=== PATIENT | female | born 1960 | race Hispanic/Latino ===

== ENCOUNTER 2017-11-01 19:43 | Inpatient (IN) | payer BC ==
[~2017-11-01] VITALS: Ht 160 cm; Wt 74.2 kg
[~2017-11-01 19:43] MED LIST: ASPI-988 PO; DULO30CA51 PO; FOLI1CAP PO; LEVO100T4 PO; MAGN400T6 PO; METO25TA6 PO
[2017-11-01 20:18] LABS: APPEARANCE,URINE Clear (CLEAR); BILIRUBIN,URINE Negative (NEGATIVE); COLOR,URINE Yellow (YELLOW); GLUCOSE, URINE (UA) Negative (NEGATIVE); KETONES,URINE Negative (NEGATIVE); LEUKOCYTE ESTERASE ,URINE Negative (NEGATIVE); NITRATE,URINE Negative (NEGATIVE); OCCULT BLOOD,URINE Trace (NEGATIVE); PROTEIN,URINE Negative (NEGATIVE); UROBILINOGEN,URINE 0.2 mg/dL (0.2-1.0)
[2017-11-01 20:33] LABS: BACTERIA,URINE None Seen /HPF (None Seen); RBC,URINE 0-1 /HPF (0-1); SQUAMOUS EPITHELIAL CELL,UR 0-2 /LPF (0-2); WBC,URINE None Seen /HPF (0-1)
[2017-11-01 20:46] LABS: BASOPHILS % (AUTO) 0.9 % (0.0-5.0); EOSINOPHILS % (AUTO) 2.8 % (0.0-8.0); HEMATOCRIT 36.5 % (36-48); MEAN CORPUSCULAR HEMOGLOBIN 28.9 pg (27.0-33.0); MEAN CORPUSCULAR HGB CONC 33.6 g/dL (32.0-36.0); MEAN CORPUSCULAR VOLUME 86.1 fL (79-99); MONOCYTES % (AUTO) 12.9 % (3.0-13.0); NEUTROPHILS % (AUTO) 39.4 % (40.0-77.0); PLATELET COUNT (AUTO) 232 K/uL (130-400); RED BLOOD CELL COUNT(AUTO) 4.24 MIL/uL (4.00-5.50); WHITE BLOOD COUNT (AUTO) 7.2 K/uL (4.8-10.8)
[2017-11-01] MEDS ORDERED: SODIUM CHLORIDE 0.9% 1000ML 1,000 ML IV ONE ×2 (20:53→23:13)
[2017-11-01] MEDS ORDERED: ONDANSETRON HCL MDV 20ML 2 MG/ML VIAL ONE (20:53)
[2017-11-01] MEDS ORDERED: MORPHINE SULFATE 4 MG/1ML SYG ONE (20:54)
[2017-11-01 20:57] LABS: POTASSIUM 3.6 mmol/L (3.5-5.1)
[2017-11-01 21:01] LABS: ALBUMIN 3.5 g/dL (3.5-5.0); BILIRUBIN,TOTAL 0.3 mg/dL (0.2-1.0); TOTAL PROTEIN, SERUM 7.4 g/dL (6.0-8.3)
[2017-11-01] MEDS ORDERED: KETOROLAC TROMETHAMINE 30MG/ML ONE (22:36)
[2017-11-01] MEDS ORDERED: METRONIDAZOLE 500MG/100ML BAG 100 ML ONE (23:12)
[2017-11-01] MEDS ORDERED: ONDANSETRON HCL 4 MG/2 ML VIAL IVP PRN (23:30)
[2017-11-01] MEDS: SODIUM CHLORIDE 0.9% 1000ML 1,000 ML IV SCH (23:30)
[2017-11-02] MEDS ORDERED: METRONIDAZOLE 250MG/50ML 50 ML IV SCH
[2017-11-02] MEDS ORDERED: ONDANSETRON HCL MDV 20ML 2 MG/ML VIAL ONE ×4 (01:34→18:36)
[2017-11-02] MEDS ORDERED: MORPHINE SULFATE 4 MG/1ML SYG ONE ×3 (01:35→12:00)
[2017-11-02] MEDS ORDERED: METRONIDAZOLE 500MG/100ML BAG 100 ML ONE (04:55)
[2017-11-02 05:04] LABS: BASOPHILS % (AUTO) 0.7 % (0.0-5.0); EOSINOPHILS % (AUTO) 4.7 % (0.0-8.0); HEMATOCRIT 32.5 % (36-48); LYMPHOCYTES % (AUTO) 50.4 % (21.0-51.0); MEAN CORPUSCULAR HEMOGLOBIN 30.3 pg (27.0-33.0); MEAN CORPUSCULAR HGB CONC 34.5 g/dL (32.0-36.0); MEAN CORPUSCULAR VOLUME 87.8 fL (79-99); NEUTROPHILS % (AUTO) 32.2 % (40.0-77.0); NUCLEATED RED BLOOD CELLS 0.1 % (0.0-0.19); PLATELET COUNT (AUTO) 199 K/uL (130-400); RED CELL DISTRIBUTION WIDTH 13.3 % (11.0-15.5); WHITE BLOOD COUNT (AUTO) 5.3 K/uL (4.8-10.8)
[2017-11-02 05:09] LABS: CREATININE 0.8 mg/dL (0.5-1.5); POTASSIUM 3.8 mmol/L (3.5-5.1)
[2017-11-02] MEDS ORDERED: COMPOUND PO MISCELLANEOUS 1 EACH MISC MISC PRN (07:00)
[2017-11-02] MEDS: SODIUM CHLORIDE 0.9% 1000ML 1,000 ML IV SCH ×3 (07:30→22:36)
[2017-11-02] MEDS ORDERED: VANCOMYCIN 250MG/5ML ORAL SOLUTION 40ML PO SCH ×2 (08:00)
[2017-11-02] MEDS: LOPERAMIDE HCL 2 MG CAP PO SCH ×2 (09:30→21:00)
[2017-11-02] MEDS: METRONIDAZOLE 250MG/50ML 50 ML IV SCH ×4 (10:00→22:36)
[2017-11-02] MEDS ORDERED: LOPERAMIDE HCL 2 MG CAP PO ONE (10:22)
[2017-11-02] MEDS: CHOLESTYRAMINE PACKET 4 GM PACKET PO SCH (12:00)
[2017-11-02] MEDS ORDERED: KETOROLAC TROMETHAMINE 30MG/ML ONE (19:33)
[2017-11-02 19:55] VITALS: BP 132/88
[2017-11-02] MEDS: VANCOMYCIN 250MG/5ML ORAL SOLUTION 40ML PO SCH ×2 (20:35)
[2017-11-02] MEDS: MORPHINE SULFATE 4 MG/1ML SYG IVP PRN (22:30)
[2017-11-03] VITALS: BP 100/58
[2017-11-03] MEDS ORDERED: ONDANSETRON HCL MDV 20ML 2 MG/ML VIAL IVP ONE ×2 (03:35→12:03)
[2017-11-03] MEDS: ONDANSETRON HCL MDV 20ML 2 MG/ML VIAL IVP PRN ×2 (03:40→12:11)
[2017-11-03] MEDS: MORPHINE SULFATE 4 MG/1ML SYG IVP PRN ×3 (03:40→20:39)
[2017-11-03] MEDS: METRONIDAZOLE 250MG/50ML 50 ML IV SCH ×4 (03:44→22:17)
[2017-11-03 04:00] VITALS: BP 104/62
[2017-11-03 04:39] LABS: HEMATOCRIT 35.3 % (36-48); MEAN CORPUSCULAR HGB CONC 33.6 g/dL (32.0-36.0); MEAN CORPUSCULAR VOLUME 86.4 fL (79-99); PLATELET COUNT (AUTO) 224 K/uL (130-400); RED BLOOD CELL COUNT(AUTO) 4.09 MIL/uL (4.00-5.50); RED CELL DISTRIBUTION WIDTH 12.9 % (11.0-15.5)
[2017-11-03 04:50] LABS: CREATININE 0.8 mg/dL (0.5-1.5); POTASSIUM 3.7 mmol/L (3.5-5.1)
[2017-11-03 04:56] LABS: BAND NEUTROPHILS % (MANUAL) 9 % (0-2); BASOPHILS % (MANUAL) 3 % (0-2); EOSINOPHILS % (MANUAL) 4 % (1-6); LYMPHOCYTES % (MANUAL) 21 % (22-44); MAN.DIFF COMMENT-IMPRESSION MANUAL DIFFERENTIAL; MONOCYTES % (MANUAL) 4 % (2-9); PLATELET MORPHOLOGY COMMENT ADEQUATE; SEGMENTED NEUTROPHILS % 59 % (40-70)
[2017-11-03 07:00] VITALS: BP 119/75
[2017-11-03 08:00] LABS: INR 0.97 (0.85-1.15); PARTIAL THROMBOPLASTIN TIME 23.3 SEC (26.3-35.5); PROTHROMBIN TIME 10.2 SEC (9.6-11.6)
[2017-11-03] MEDS: LOPERAMIDE HCL 2 MG CAP PO SCH ×2 (08:54→20:33)
[2017-11-03] MEDS: VANCOMYCIN 250MG/5ML ORAL SOLUTION 40ML PO SCH ×8 (08:55→20:34)
[2017-11-03 11:00] VITALS: BP 141/91
[2017-11-03] MEDS: CHOLESTYRAMINE PACKET 4 GM PACKET PO SCH (12:12)
[2017-11-03] MEDS: SODIUM CHLORIDE 0.9% 1000ML 1,000 ML IV SCH ×3 (15:30→23:30)
[2017-11-03 15:57] VITALS: BP 137/93
[2017-11-03] MEDS ORDERED: PEG 3350/NA SULF,BICARB,CL/KCL 4000 ML SOLN PO SCH (16:00)
[2017-11-03] MEDS ORDERED: ALPRAZOLAM 0.5 MG TABLET PO PRN (17:45)
[2017-11-03 19:50] VITALS: BP 138/90
[2017-11-03] MEDS ORDERED: MAGNESIUM CITRATE 296 ML SOLUTION PO SCH (20:00)
[2017-11-03] MEDS: METOPROLOL TARTRATE 25 MG TAB PO SCH (20:33)
[2017-11-04] VITALS (23 sets, daily range): BP systolic 82–152; BP diastolic 45–88
[2017-11-04] MEDS ORDERED: MAGNESIUM CITRATE 296 ML SOLUTION PO SCH (04:00)
[2017-11-04] MEDS: METRONIDAZOLE 250MG/50ML 50 ML IV SCH ×4 (04:29→20:59)
[2017-11-04] MEDS: LEVOTHYROXINE 100 MCG TABLET PO SCH (04:30)
[2017-11-04] MEDS: SODIUM CHLORIDE 0.9% 1000ML 1,000 ML IV SCH ×3 (04:30→21:00)
[2017-11-04] MEDS: ONDANSETRON HCL MDV 20ML 2 MG/ML VIAL IVP PRN (06:02)
[2017-11-04] MEDS: MORPHINE SULFATE 4 MG/1ML SYG IVP PRN ×3 (06:02→21:21)
[2017-11-04] MEDS: LOPERAMIDE HCL 2 MG CAP PO SCH ×2 (08:19→20:59)
[2017-11-04] MEDS ORDERED: ASPIRIN PO SCH (09:00)
[2017-11-04] MEDS ORDERED: CAFFEINE PO SCH (09:00)
[2017-11-04] MEDS ORDERED: ACETAMINOPHEN PO SCH (09:00)
[2017-11-04] MEDS: METOPROLOL TARTRATE 25 MG TAB PO SCH ×2 (09:00→20:59)
[2017-11-04] MEDS: VANCOMYCIN 250MG/5ML ORAL SOLUTION 40ML PO SCH ×8 (09:00→20:58)
[2017-11-04] MEDS ORDERED: PROPOFOL 10 MG/ML 20ML VIAL IV ONE ×2 (10:04)
[2017-11-04] MEDS ORDERED: COMPOUND IV MISC 1 EACH IVSOLN MISC PRN (12:00)
[2017-11-04] MEDS: CHOLESTYRAMINE PACKET 4 GM PACKET PO SCH (15:11)
[2017-11-04] MEDS: KETOROLAC TROMETHAMINE 30MG/ML IV PRN (16:54)
[2017-11-05 03:00] VITALS: BP 108/71
[2017-11-05] MEDS: METRONIDAZOLE 250MG/50ML 50 ML IV SCH ×4 (04:13→22:01)
[2017-11-05] MEDS: SODIUM CHLORIDE 0.9% 1000ML 1,000 ML IV SCH ×3 (04:14→16:56)
[2017-11-05 04:54] LABS: ALBUMIN 2.5 g/dL (3.5-5.0); BILIRUBIN,TOTAL 0.3 mg/dL (0.2-1.0); CREATININE 0.7 mg/dL (0.5-1.5); POTASSIUM 3.2 mmol/L (3.5-5.1); TOTAL PROTEIN, SERUM 5.5 g/dL (6.0-8.3)
[2017-11-05] MEDS: MORPHINE SULFATE 4 MG/1ML SYG IVP PRN ×3 (05:23→16:51)
[2017-11-05] MEDS: LEVOTHYROXINE 100 MCG TABLET PO SCH (05:23)
[2017-11-05] MEDS ORDERED: POTASSIUM CHLORIDE 10% ELIXIR 20 MEQ/15 ML UDCUP PO PRN (06:45)
[2017-11-05] MEDS ORDERED: POTASSIUM CHLORIDE 20MEQ/100ML 100 ML IV PRN (06:45)
[2017-11-05] MEDS ORDERED: LIDOCAINE HCL-MPF 1% 2ML VIAL IVP PRN (06:45)
[2017-11-05 08:00] VITALS: BP 110/69
[2017-11-05 11:50] VITALS: BP 136/71
[2017-11-05] MEDS: METOPROLOL TARTRATE 25 MG TAB PO SCH ×2 (11:59→22:00)
[2017-11-05] MEDS: POTASSIUM CHLORIDE 20 MEQ ERTAB PO PRN ×3 (11:59→22:00)
[2017-11-05] MEDS: CHOLESTYRAMINE PACKET 4 GM PACKET PO SCH (12:00)
[2017-11-05] MEDS: LOPERAMIDE HCL 2 MG CAP PO SCH ×2 (12:00→21:59)
[2017-11-05] MEDS: VANCOMYCIN 250MG/5ML ORAL SOLUTION 40ML PO SCH ×8 (12:01→22:00)
[2017-11-05 16:19] VITALS: BP 113/73
[2017-11-05 19:10] VITALS: BP 132/78
[2017-11-05 23:27] VITALS: BP 110/64
[2017-11-06] MEDS: MORPHINE SULFATE 4 MG/1ML SYG IVP PRN ×3 (02:01→22:50)
[2017-11-06] MEDS: SODIUM CHLORIDE 0.9% 1000ML 1,000 ML IV SCH ×3 (02:01→22:49)
[2017-11-06 03:27] VITALS: BP 107/69
[2017-11-06] MEDS: METRONIDAZOLE 250MG/50ML 50 ML IV SCH ×4 (04:04→22:40)
[2017-11-06 05:59] LABS: HEMATOCRIT 31.8 % (36-48); MEAN CORPUSCULAR HEMOGLOBIN 29.9 pg (27.0-33.0); MEAN CORPUSCULAR HGB CONC 34.6 g/dL (32.0-36.0); MEAN CORPUSCULAR VOLUME 86.5 fL (79-99); NUCLEATED RED BLOOD CELLS 0.1 % (0.0-0.19); PLATELET COUNT (AUTO) 173 K/uL (130-400); RED BLOOD CELL COUNT(AUTO) 3.68 MIL/uL (4.00-5.50); RED CELL DISTRIBUTION WIDTH 12.9 % (11.0-15.5); WHITE BLOOD COUNT (AUTO) 4.8 K/uL (4.8-10.8)
[2017-11-06 06:28] LABS: ALBUMIN 2.6 g/dL (3.5-5.0); BILIRUBIN,TOTAL 0.2 mg/dL (0.2-1.0); CREATININE 0.7 mg/dL (0.5-1.5); POTASSIUM 3.8 mmol/L (3.5-5.1); TOTAL PROTEIN, SERUM 5.7 g/dL (6.0-8.3)
[2017-11-06 07:00] VITALS: BP_SYST 115; BP_SYST 126; BP_DIAS 59; BP_DIAS 78
[2017-11-06 07:08] LABS: ERYTHROCYTE SEDIMENTATION RATE 6 MM/HR (0-15)
[2017-11-06] MEDS: LEVOTHYROXINE 100 MCG TABLET PO SCH (07:30)
[2017-11-06] MEDS: METOPROLOL TARTRATE 25 MG TAB PO SCH ×2 (09:00→22:40)
[2017-11-06] MEDS: VANCOMYCIN 250MG/5ML ORAL SOLUTION 40ML PO SCH ×8 (09:00→21:00)
[2017-11-06] MEDS: LOPERAMIDE HCL 2 MG CAP PO SCH ×2 (09:00→22:40)
[2017-11-06 11:00] VITALS: BP_SYST 108; BP_SYST 126; BP_DIAS 43; BP_DIAS 74
[2017-11-06] MEDS: KETOROLAC TROMETHAMINE 30MG/ML IV PRN (11:16)
[2017-11-06] MEDS: CHOLESTYRAMINE PACKET 4 GM PACKET PO SCH (12:00)
[2017-11-06 16:00] VITALS: BP 124/75
[2017-11-06 20:00] VITALS: BP 125/84
[2017-11-07] VITALS: BP 114/74
[2017-11-07 04:00] VITALS: BP 111/69
[2017-11-07] MEDS: METRONIDAZOLE 250MG/50ML 50 ML IV SCH ×2 (04:15→08:45)
[2017-11-07] MEDS: SODIUM CHLORIDE 0.9% 1000ML 1,000 ML IV SCH ×3 (06:13→23:38)
[2017-11-07] MEDS: LEVOTHYROXINE 100 MCG TABLET PO SCH (06:40)
[2017-11-07 08:13] VITALS: BP 137/80
[2017-11-07] MEDS: METOPROLOL TARTRATE 25 MG TAB PO SCH ×2 (08:44→21:40)
[2017-11-07] MEDS: LOPERAMIDE HCL 2 MG CAP PO SCH ×2 (08:44→21:40)
[2017-11-07] MEDS: VANCOMYCIN 250MG/5ML ORAL SOLUTION 40ML PO SCH ×8 (08:45→21:42)
[2017-11-07] MEDS ORDERED: METRONIDAZOLE 500 MG TABLET PO SCH (10:45)
[2017-11-07] MEDS: MORPHINE SULFATE 4 MG/1ML SYG IVP PRN ×3 (11:51→23:37)
[2017-11-07] MEDS: ONDANSETRON HCL MDV 20ML 2 MG/ML VIAL IVP PRN (11:52)
[2017-11-07 12:00] VITALS: BP 130/88
[2017-11-07] MEDS: CHOLESTYRAMINE PACKET 4 GM PACKET PO SCH (12:56)
[2017-11-07] MEDS: METRONIDAZOLE 500MG/100ML BAG 100 ML IV SCH ×2 (12:56→21:40)
[2017-11-07 16:00] VITALS: BP 137/86
[2017-11-08] VITALS (7 sets, daily range): BP systolic 94–166; BP diastolic 70–79
[2017-11-08] MEDS: LEVOTHYROXINE 100 MCG TABLET PO SCH (05:54)
[2017-11-08] MEDS: METRONIDAZOLE 500MG/100ML BAG 100 ML IV SCH ×3 (05:54→21:00)
[2017-11-08 06:24] LABS: BASOPHILS % (AUTO) 0.5 % (0.0-5.0); EOSINOPHILS % (AUTO) 4.4 % (0.0-8.0); HEMATOCRIT 32.4 % (36-48); LYMPHOCYTES % (AUTO) 38.5 % (21.0-51.0); MEAN CORPUSCULAR HEMOGLOBIN 29.8 pg (27.0-33.0); MEAN CORPUSCULAR HGB CONC 34.5 g/dL (32.0-36.0); MEAN CORPUSCULAR VOLUME 86.4 fL (79-99); MONOCYTES % (AUTO) 13.9 % (3.0-13.0); NEUTROPHILS % (AUTO) 42.7 % (40.0-77.0); PLATELET COUNT (AUTO) 190 K/uL (130-400); RED BLOOD CELL COUNT(AUTO) 3.75 MIL/uL (4.00-5.50); RED CELL DISTRIBUTION WIDTH 13.1 % (11.0-15.5); WHITE BLOOD COUNT (AUTO) 5.1 K/uL (4.8-10.8)
[2017-11-08 06:38] LABS: ALBUMIN 2.6 g/dL (3.5-5.0); BILIRUBIN,TOTAL 0.3 mg/dL (0.2-1.0); CREATININE 0.7 mg/dL (0.5-1.5); POTASSIUM 3.4 mmol/L (3.5-5.1); TOTAL PROTEIN, SERUM 5.6 g/dL (6.0-8.3)
[2017-11-08] MEDS: SODIUM CHLORIDE 0.9% 1000ML 1,000 ML IV SCH ×3 (07:30→21:00)
[2017-11-08] MEDS: LOPERAMIDE HCL 2 MG CAP PO SCH ×2 (09:00→20:58)
[2017-11-08] MEDS: METOPROLOL TARTRATE 25 MG TAB PO SCH ×2 (09:52→20:58)
[2017-11-08] MEDS: HYDROCORTISONE 25 MG SUPPOSITORY PR SCH (09:52)
[2017-11-08] MEDS: VANCOMYCIN 250MG/5ML ORAL SOLUTION 40ML PO SCH ×8 (09:53→20:59)
[2017-11-08] MEDS: POTASSIUM CHLORIDE 20 MEQ ERTAB PO PRN ×2 (09:53→11:34)
[2017-11-08] MEDS: MORPHINE SULFATE 4 MG/1ML SYG IVP PRN ×3 (09:56→18:21)
[2017-11-08] MEDS: ONDANSETRON HCL MDV 20ML 2 MG/ML VIAL IVP PRN (14:03)
[2017-11-08] MEDS: CHOLESTYRAMINE PACKET 4 GM PACKET PO SCH (14:08)
[2017-11-09 04:00] VITALS: BP 113/73
[2017-11-09] MEDS: METRONIDAZOLE 500MG/100ML BAG 100 ML IV SCH ×3 (05:44→21:45)
[2017-11-09] MEDS: ONDANSETRON HCL MDV 20ML 2 MG/ML VIAL IVP PRN (05:45)
[2017-11-09] MEDS: SODIUM CHLORIDE 0.9% 1000ML 1,000 ML IV SCH ×3 (05:52→22:55)
[2017-11-09 06:46] LABS: HEMATOCRIT 36.5 % (36-48); MEAN CORPUSCULAR HEMOGLOBIN 28.9 pg (27.0-33.0); MEAN CORPUSCULAR HGB CONC 33.5 g/dL (32.0-36.0); MEAN CORPUSCULAR VOLUME 86.2 fL (79-99); PLATELET COUNT (AUTO) 205 K/uL (130-400); RED BLOOD CELL COUNT(AUTO) 4.23 MIL/uL (4.00-5.50); RED CELL DISTRIBUTION WIDTH 13.2 % (11.0-15.5); WHITE BLOOD COUNT (AUTO) 5.4 K/uL (4.8-10.8)
[2017-11-09 06:53] LABS: CREATININE 0.7 mg/dL (0.5-1.5); POTASSIUM 3.8 mmol/L (3.5-5.1)
[2017-11-09 08:10] VITALS: BP 117/76
[2017-11-09] MEDS: LEVOTHYROXINE 100 MCG TABLET PO SCH (08:49)
[2017-11-09] MEDS: DICYCLOMINE HCL 20 MG TAB PO PRN ×3 (08:49→18:01)
[2017-11-09] MEDS: HYDROCORTISONE 25 MG SUPPOSITORY PR SCH (08:49)
[2017-11-09] MEDS: METOPROLOL TARTRATE 25 MG TAB PO SCH ×2 (08:49→20:28)
[2017-11-09] MEDS: PANTOPRAZOLE SODIUM 40 MG TABLET.DR PO SCH (08:49)
[2017-11-09] MEDS: LOPERAMIDE HCL 2 MG CAP PO SCH ×2 (08:50→20:28)
[2017-11-09] MEDS: VANCOMYCIN 250MG/5ML ORAL SOLUTION 40ML PO SCH ×8 (08:51→20:27)
[2017-11-09] MEDS: CHOLESTYRAMINE PACKET 4 GM PACKET PO SCH (11:56)
[2017-11-09 12:02] VITALS: BP 114/75
[2017-11-09] MEDS ORDERED: DICYCLOMINE HCL 20 MG TAB PO PRN (15:30)
[2017-11-09 16:00] VITALS: BP 121/73
[2017-11-09] MEDS: HYDROMORPHONE HCL 0.5 MG/0.5 ML ML IVP PRN (18:04)
[2017-11-09 20:00] VITALS: BP 125/75
[2017-11-10] VITALS: BP 118/68
[2017-11-10] MEDS: HYDROMORPHONE HCL 0.5 MG/0.5 ML ML IVP PRN ×2 (00:18→22:02)
[2017-11-10 04:00] VITALS: BP 98/65
[2017-11-10] MEDS: METRONIDAZOLE 500MG/100ML BAG 100 ML IV SCH (05:12)
[2017-11-10] MEDS: LEVOTHYROXINE 100 MCG TABLET PO SCH (06:12)
[2017-11-10 07:47] VITALS: BP 128/75
[2017-11-10] MEDS: LOPERAMIDE HCL 2 MG CAP PO SCH ×2 (09:00→21:52)
[2017-11-10] MEDS: PANTOPRAZOLE SODIUM 40 MG TABLET.DR PO SCH (10:41)
[2017-11-10] MEDS: SUCRALFATE 1 GM TABLET PO SCH ×2 (10:41→21:53)
[2017-11-10] MEDS: DICYCLOMINE HCL 20 MG TAB PO PRN (10:41)
[2017-11-10] MEDS: HYDROCORTISONE 25 MG SUPPOSITORY PR SCH (10:42)
[2017-11-10] MEDS: METOPROLOL TARTRATE 25 MG TAB PO SCH ×2 (10:42→21:52)
[2017-11-10] MEDS: VANCOMYCIN 250MG/5ML ORAL SOLUTION 40ML PO SCH ×8 (10:45→21:58)
[2017-11-10] MEDS: SODIUM CHLORIDE 0.9% 1000ML 1,000 ML IV SCH (10:46)
[2017-11-10 12:00] VITALS: BP 115/83
[2017-11-10] MEDS: CHOLESTYRAMINE PACKET 4 GM PACKET PO SCH (12:00)
[2017-11-10 16:59] VITALS: BP 128/78
[2017-11-10 20:00] VITALS: BP 125/77
[2017-11-11] VITALS: BP 113/70
[2017-11-11] MEDS: SODIUM CHLORIDE 0.9% 1000ML 1,000 ML IV SCH ×2 (02:29→17:34)
[2017-11-11 03:59] VITALS: BP 130/69
[2017-11-11] MEDS ORDERED: METHYLPREDNISOLONE SOD SUCC 125MG/2ML VIAL IVP SCH (06:45)
[2017-11-11] MEDS: LEVOTHYROXINE 100 MCG TABLET PO SCH (06:46)
[2017-11-11] MEDS: SUCRALFATE 1 GM TABLET PO SCH ×3 (06:46→17:34)
[2017-11-11 07:00] VITALS: BP 115/79
[2017-11-11 08:24] LABS: HEMATOCRIT 36.1 % (36-48); MEAN CORPUSCULAR HEMOGLOBIN 29.2 pg (27.0-33.0); MEAN CORPUSCULAR VOLUME 85.9 fL (79-99); PLATELET COUNT (AUTO) 199 K/uL (130-400); RED CELL DISTRIBUTION WIDTH 13.3 % (11.0-15.5); WHITE BLOOD COUNT (AUTO) 6.3 K/uL (4.8-10.8)
[2017-11-11 08:35] LABS: CREATININE 0.7 mg/dL (0.5-1.5); POTASSIUM 3.3 mmol/L (3.5-5.1); URIC ACID 4.4 mg/dL (2.6-7.2)
[2017-11-11] MEDS: LOPERAMIDE HCL 2 MG CAP PO SCH ×2 (09:00→20:53)
[2017-11-11] MEDS: HYDROCORTISONE 25 MG SUPPOSITORY PR SCH (09:00)
[2017-11-11] MEDS: METOPROLOL TARTRATE 25 MG TAB PO SCH ×2 (09:53→20:51)
[2017-11-11] MEDS: VANCOMYCIN 250MG/5ML ORAL SOLUTION 40ML PO SCH ×8 (09:53→20:53)
[2017-11-11] MEDS: PANTOPRAZOLE SODIUM 40 MG TABLET.DR PO SCH (09:53)
[2017-11-11 11:00] VITALS: BP 121/76
[2017-11-11] MEDS: CHOLESTYRAMINE PACKET 4 GM PACKET PO SCH (12:00)
[2017-11-11 16:00] VITALS: BP 117/71
[2017-11-11 20:00] VITALS: BP 148/97
[2017-11-11] MEDS ORDERED: HYDROMORPHONE 1 MG/1 ML AMP ONE (21:00)
[2017-11-12] VITALS (7 sets, daily range): BP systolic 117–146; BP diastolic 67–98
[2017-11-12] MEDS: SODIUM CHLORIDE 0.9% 1000ML 1,000 ML IV SCH ×3 (06:07→17:39)
[2017-11-12] MEDS: LEVOTHYROXINE 100 MCG TABLET PO SCH (06:09)
[2017-11-12] MEDS: SUCRALFATE 1 GM TABLET PO SCH ×3 (06:09→17:39)
[2017-11-12] MEDS ORDERED: METHYLPREDNISOLONE SOD SUCC 125MG/2ML VIAL IVP SCH (07:00)
[2017-11-12] MEDS: VANCOMYCIN 250MG/5ML ORAL SOLUTION 40ML PO SCH ×8 (09:00→20:39)
[2017-11-12] MEDS: HYDROCORTISONE 25 MG SUPPOSITORY PR SCH (09:08)
[2017-11-12] MEDS: LOPERAMIDE HCL 2 MG CAP PO SCH ×2 (09:08→20:44)
[2017-11-12] MEDS: PANTOPRAZOLE SODIUM 40 MG TABLET.DR PO SCH (09:08)
[2017-11-12] MEDS: METOPROLOL TARTRATE 25 MG TAB PO SCH ×2 (09:08→21:46)
[2017-11-12 10:26] LABS: HEMATOCRIT 34.4 % (36-48); MEAN CORPUSCULAR HGB CONC 34.7 g/dL (32.0-36.0); MEAN CORPUSCULAR VOLUME 86.3 fL (79-99); PLATELET COUNT (AUTO) 212 K/uL (130-400); RED BLOOD CELL COUNT(AUTO) 3.99 MIL/uL (4.00-5.50); RED CELL DISTRIBUTION WIDTH 13.4 % (11.0-15.5); WHITE BLOOD COUNT (AUTO) 10.9 K/uL (4.8-10.8)
[2017-11-12 10:42] LABS: ALBUMIN 3.1 g/dL (3.5-5.0); BILIRUBIN,TOTAL 0.3 mg/dL (0.2-1.0); CREATININE 0.7 mg/dL (0.5-1.5); POTASSIUM 3.4 mmol/L (3.5-5.1); TOTAL PROTEIN, SERUM 6.7 g/dL (6.0-8.3)
[2017-11-12] MEDS: CHOLESTYRAMINE PACKET 4 GM PACKET PO SCH (13:17)
[2017-11-13] VITALS (18 sets, daily range): BP systolic 90–144; BP diastolic 66–92
[2017-11-13] MEDS: SODIUM CHLORIDE 0.9% 1000ML 1,000 ML IV SCH ×4 (04:34→20:45)
[2017-11-13 04:56] LABS: HEMATOCRIT 33.8 % (36-48); MEAN CORPUSCULAR HGB CONC 33.6 g/dL (32.0-36.0); MEAN CORPUSCULAR VOLUME 86.2 fL (79-99); NUCLEATED RED BLOOD CELLS 0.1 % (0.0-0.19); PLATELET COUNT (AUTO) 197 K/uL (130-400); RED BLOOD CELL COUNT(AUTO) 3.92 MIL/uL (4.00-5.50); RED CELL DISTRIBUTION WIDTH 13.7 % (11.0-15.5); WHITE BLOOD COUNT (AUTO) 10.6 K/uL (4.8-10.8)
[2017-11-13 05:27] LABS: ALBUMIN 2.9 g/dL (3.5-5.0); BILIRUBIN,TOTAL 0.3 mg/dL (0.2-1.0); CREATININE 0.7 mg/dL (0.5-1.5); POTASSIUM 3.4 mmol/L (3.5-5.1); TOTAL PROTEIN, SERUM 6.4 g/dL (6.0-8.3)
[2017-11-13] MEDS: LEVOTHYROXINE 100 MCG TABLET PO SCH (07:30)
[2017-11-13] MEDS: LOPERAMIDE HCL 2 MG CAP PO SCH ×2 (09:00→20:44)
[2017-11-13] MEDS: SUCRALFATE 1 GM TABLET PO SCH ×3 (11:30→17:40)
[2017-11-13] MEDS: METOPROLOL TARTRATE 25 MG TAB PO SCH ×2 (12:09→20:44)
[2017-11-13] MEDS: PANTOPRAZOLE SODIUM 40 MG TABLET.DR PO SCH (12:09)
[2017-11-13] MEDS: HYDROCORTISONE 25 MG SUPPOSITORY PR SCH (12:10)
[2017-11-13] MEDS: CHOLESTYRAMINE PACKET 4 GM PACKET PO SCH (12:11)
[2017-11-13] MEDS: ONDANSETRON HCL MDV 20ML 2 MG/ML VIAL IVP PRN (17:41)
[2017-11-14 04:35] VITALS: BP 109/68
[2017-11-14] MEDS: SUCRALFATE 1 GM TABLET PO SCH ×2 (06:14→18:46)
[2017-11-14] MEDS: LEVOTHYROXINE 100 MCG TABLET PO SCH (06:14)
[2017-11-14] MEDS: POTASSIUM CHLORIDE 20 MEQ ERTAB PO PRN (06:14)
[2017-11-14] MEDS: SODIUM CHLORIDE 0.9% 1000ML 1,000 ML IV SCH ×3 (06:15→23:30)
[2017-11-14 08:21] VITALS: BP 140/79
[2017-11-14] MEDS: LOPERAMIDE HCL 2 MG CAP PO SCH ×2 (10:33→20:35)
[2017-11-14] MEDS: HYDROCORTISONE 25 MG SUPPOSITORY PR SCH (10:33)
[2017-11-14] MEDS: METOPROLOL TARTRATE 25 MG TAB PO SCH ×2 (10:33→20:35)
[2017-11-14] MEDS: PANTOPRAZOLE SODIUM 40 MG TABLET.DR PO SCH (10:33)
[2017-11-14 11:34] LABS: ALBUMIN 3.1 g/dL (3.5-5.0); BILIRUBIN,TOTAL 0.3 mg/dL (0.2-1.0); CREATININE 0.8 mg/dL (0.5-1.5); MAGNESIUM 1.8 mg/dL (1.80-2.40); POTASSIUM 3.2 mmol/L (3.5-5.1); TOTAL PROTEIN, SERUM 6.9 g/dL (6.0-8.3)
[2017-11-14 11:47] LABS: BASOPHILS % (AUTO) 0.4 % (0.0-5.0); EOSINOPHILS % (AUTO) 1.6 % (0.0-8.0); HEMATOCRIT 36.4 % (36-48); LYMPHOCYTES % (AUTO) 31.9 % (21.0-51.0); MEAN CORPUSCULAR HEMOGLOBIN 29.7 pg (27.0-33.0); MEAN CORPUSCULAR HGB CONC 34.3 g/dL (32.0-36.0); MEAN CORPUSCULAR VOLUME 86.4 fL (79-99); MONOCYTES % (AUTO) 13.4 % (3.0-13.0); NEUTROPHILS % (AUTO) 52.7 % (40.0-77.0); NUCLEATED RED BLOOD CELLS 0.1 % (0.0-0.19); PLATELET COUNT (AUTO) 191 K/uL (130-400); RED BLOOD CELL COUNT(AUTO) 4.21 MIL/uL (4.00-5.50); RED CELL DISTRIBUTION WIDTH 13.5 % (11.0-15.5); WHITE BLOOD COUNT (AUTO) 6.6 K/uL (4.8-10.8)
[2017-11-14 11:57] VITALS: BP 132/46
[2017-11-14] MEDS: CHOLESTYRAMINE PACKET 4 GM PACKET PO SCH (12:00)
[2017-11-14] MEDS ORDERED: COMPOUND IV REFRIGERATED 1 EACH IVSOLN MISC PRN (13:00)
[2017-11-14] MEDS ORDERED: VANCOMYCIN PROTOCOL PER PHARMACY IV SCH (13:00)
[2017-11-14] MEDS ORDERED: MAGNESIUM 4GM PREMIX 100ML 100 ML IV SCH (14:00)
[2017-11-14 15:50] VITALS: BP 123/84
[2017-11-14] MEDS: VANCOMYCIN 1.25 GM in SODIUM CHLORIDE 0.9% 250 ML IV SCH (18:47)
[2017-11-14 19:47] VITALS: BP 121/81
[2017-11-15] VITALS (7 sets, daily range): BP systolic 104–131; BP diastolic 66–84
[2017-11-15] MEDS: VANCOMYCIN 1.25 GM in SODIUM CHLORIDE 0.9% 250 ML IV SCH ×2 (05:08→12:41)
[2017-11-15] MEDS: POTASSIUM CHLORIDE 20 MEQ ERTAB PO PRN ×2 (05:09→06:25)
[2017-11-15] MEDS: LEVOTHYROXINE 100 MCG TABLET PO SCH (06:24)
[2017-11-15] MEDS: SUCRALFATE 1 GM TABLET PO SCH ×3 (06:24→17:13)
[2017-11-15] MEDS: SODIUM CHLORIDE 0.9% 1000ML 1,000 ML IV SCH ×3 (06:51→20:52)
[2017-11-15] MEDS: PANTOPRAZOLE SODIUM 40 MG TABLET.DR PO SCH (09:59)
[2017-11-15] MEDS: METOPROLOL TARTRATE 25 MG TAB PO SCH ×2 (10:00→20:52)
[2017-11-15] MEDS: HYDROCORTISONE 25 MG SUPPOSITORY PR SCH (10:00)
[2017-11-15] MEDS: LOPERAMIDE HCL 2 MG CAP PO SCH ×2 (10:00→20:51)
[2017-11-15] MEDS: CHOLESTYRAMINE PACKET 4 GM PACKET PO SCH (12:40)
[2017-11-16] MEDS: VANCOMYCIN 1.25 GM in SODIUM CHLORIDE 0.9% 250 ML IV SCH ×2 (01:06→13:00)
[2017-11-16 04:40] VITALS: BP 127/83
[2017-11-16] MEDS: SUCRALFATE 1 GM TABLET PO SCH ×2 (06:12→11:53)
[2017-11-16] MEDS: LEVOTHYROXINE 100 MCG TABLET PO SCH (06:12)
[2017-11-16 06:17] LABS: BASOPHILS % (AUTO) 0.4 % (0.0-5.0); EOSINOPHILS % (AUTO) 4.2 % (0.0-8.0); LYMPHOCYTES % (AUTO) 39.1 % (21.0-51.0); MEAN CORPUSCULAR HEMOGLOBIN 29.3 pg (27.0-33.0); MEAN CORPUSCULAR HGB CONC 34.4 g/dL (32.0-36.0); MEAN CORPUSCULAR VOLUME 85.4 fL (79-99); MONOCYTES % (AUTO) 11.7 % (3.0-13.0); NEUTROPHILS % (AUTO) 44.6 % (40.0-77.0); PLATELET COUNT (AUTO) 209 K/uL (130-400); RED CELL DISTRIBUTION WIDTH 13.3 % (11.0-15.5); WHITE BLOOD COUNT (AUTO) 6.7 K/uL (4.8-10.8)
[2017-11-16 06:30] LABS: ALBUMIN 2.8 g/dL (3.5-5.0); BILIRUBIN,TOTAL 0.3 mg/dL (0.2-1.0); CREATININE 0.7 mg/dL (0.5-1.5); MAGNESIUM 1.9 mg/dL (1.80-2.40); POTASSIUM 3.5 mmol/L (3.5-5.1); TOTAL PROTEIN, SERUM 6.2 g/dL (6.0-8.3)
[2017-11-16 07:00] VITALS: BP 135/84
[2017-11-16] MEDS: SODIUM CHLORIDE 0.9% 1000ML 1,000 ML IV SCH ×2 (07:30→15:30)
[2017-11-16] MEDS: METOPROLOL TARTRATE 25 MG TAB PO SCH (09:00)
[2017-11-16 11:00] VITALS: BP 110/76
[2017-11-16] MEDS: HYDROCORTISONE 25 MG SUPPOSITORY PR SCH (11:51)
[2017-11-16] MEDS: PANTOPRAZOLE SODIUM 40 MG TABLET.DR PO SCH (11:51)
[2017-11-16] MEDS: LOPERAMIDE HCL 2 MG CAP PO SCH (11:51)
[2017-11-16] MEDS: CHOLESTYRAMINE PACKET 4 GM PACKET PO SCH (12:00)
[2017-11-16 16:00] VITALS: BP 126/84
== END 2017-11-16 18:30 | disposition home or self-care (01) | DRG 372 ==
LOC: EDH 19:43 → EDHIP 23:10 → 3CH 11-02 19:55
PROVIDERS: ADMIT Internal Medicine; ATTEND Internal Medicine
PROC: 02HV33Z Insertion of Infusion Device into Superior Vena Cava, Percutaneous Approach (ICD-10-PCS; 2017-11-03)
PROC: 0DJD8ZZ Inspection of Lower Intestinal Tract, Via Natural or Artificial Opening Endoscopic (ICD-10-PCS; principal; 2017-11-04)
DX: A04.71 Enterocolitis due to Clostridium difficile, recurrent (principal); E87.2 Acidosis; K86.1 Other chronic pancreatitis; I48.91 Unspecified atrial fibrillation; E44.1 Mild protein-calorie malnutrition; E86.0 Dehydration; Q43.8 Other specified congenital malformations of intestine; I25.10 Atherosclerotic heart disease of native coronary artery without angina pectoris; E03.9 Hypothyroidism, unspecified; K29.70 Gastritis, unspecified, without bleeding; K21.0 Gastro-esophageal reflux disease with esophagitis; I10 Essential (primary) hypertension; E87.6 Hypokalemia; M19.90 Unspecified osteoarthritis, unspecified site; Z90.710 Acquired absence of both cervix and uterus; Z91.14 Patient's other noncompliance with medication regimen; Z68.29 Body mass index [BMI] 29.0-29.9, adult
CPT/HCPCS: 36415; 71045; 74176; 76700; 80048; 80053; 80202; 81001; 82150; 83690; 83735; 84550; 85025; 85027; 85610; 85651; 85730; 87324; 87507; 88305; 88312; 93005; J1170; J1885; J2270; J2704; J2930; J3370; J3475; J3490; J7030

== ENCOUNTER 2018-08-15 12:46 | Emergency (ER) | payer BC ==
[~2018-08-15 12:46] MED LIST changes: -DULO30CA51 PO; -FOLI1CAP PO; -MAGN400T6 PO
[2018-08-15 13:42] LABS: BILIRUBIN,URINE Negative (NEGATIVE); COLOR,URINE Yellow (YELLOW); GLUCOSE, URINE (UA) Negative (NEGATIVE); KETONES,URINE Negative (NEGATIVE); LEUKOCYTE ESTERASE ,URINE Trace (NEGATIVE); NITRATE,URINE Negative (NEGATIVE); OCCULT BLOOD,URINE Small (NEGATIVE); PH,URINE 5.5 (5.0-8.0); PROTEIN,URINE Negative (NEGATIVE); UROBILINOGEN,URINE 0.2 mg/dL (0.2-1.0)
[2018-08-15 13:53] LABS: AMPHET/METH SCREEN,URINE NEGATIVE (NEGATIVE); BARBITURATE SCREEN, URINE NEGATIVE (NEGATIVE); BENZODIAZEPINES SCREEN,URINE NEGATIVE (NEGATIVE); CANNABINOID SCREEN,URINE NEGATIVE (NEGATIVE); COCAINE SCREEN,URINE NEGATIVE (NEGATIVE); OPIATE SCREEN,URINE NEGATIVE (NEGATIVE); PHENCYCLIDINE SCREEN,URINE NEGATIVE (NEGATIVE)
[2018-08-15 14:30] LABS: BACTERIA,URINE Few /HPF (None Seen); SQUAMOUS EPITHELIAL CELL,UR Few /HPF (0-2)
[2018-08-15 14:42] LABS: APPEARANCE,URINE SLIGHTLY CLOUDY (CLEAR)
== END 2018-08-15 16:36 | disposition home or self-care (01) ==
LOC: EDH 12:46
DX: S09.8XXA Other specified injuries of head, initial encounter (principal); R56.9 Unspecified convulsions; M25.511 Pain in right shoulder; R03.0 Elevated blood-pressure reading, without diagnosis of hypertension; I48.91 Unspecified atrial fibrillation; E07.9 Disorder of thyroid, unspecified; Z90.710 Acquired absence of both cervix and uterus; W18.39XA Other fall on same level, initial encounter; Y93.89 Activity, other specified; Y92.89 Other specified places as the place of occurrence of the external cause; Y99.8 Other external cause status
CPT/HCPCS: 71045; 73030; 80305; 81001; 93005

== ENCOUNTER 2019-09-05 07:42 | Emergency (ER) | payer BC ==
[2019-09-05 08:10] LABS: APPEARANCE,URINE Clear (CLEAR); BILIRUBIN,URINE Negative (NEGATIVE); COLOR,URINE Yellow (YELLOW); GLUCOSE, URINE (UA) Negative (NEGATIVE); KETONES,URINE Negative (NEGATIVE); LEUKOCYTE ESTERASE ,URINE Negative (NEGATIVE); NITRATE,URINE Negative (NEGATIVE); OCCULT BLOOD,URINE Small (NEGATIVE); PROTEIN,URINE Negative (NEGATIVE); UROBILINOGEN,URINE 0.2 mg/dL (0.2-1.0)
[2019-09-05 08:16] LABS: RBC,URINE 0-1 /HPF (0-1); WBC,URINE 0-1 /HPF (0-1)
[2019-09-05 08:17] LABS: BACTERIA,URINE Rare /HPF (None Seen); SQUAMOUS EPITHELIAL CELL,UR Few /HPF (0-2)
[2019-09-05 08:24] LABS: BASOPHILS % (AUTO) 0.8 % (0.0-5.0); EOSINOPHILS % (AUTO) 4.6 % (0.0-8.0); HEMATOCRIT 38.4 % (36-48); LYMPHOCYTES % (AUTO) 34.2 % (21.0-51.0); MEAN CORPUSCULAR HEMOGLOBIN 28.5 pg (27.0-33.0); MEAN CORPUSCULAR VOLUME 89.1 fL (79-99); MONOCYTES % (AUTO) 9.9 % (3.0-13.0); NEUTROPHILS % (AUTO) 50.1 % (40.0-77.0); PLATELET COUNT (AUTO) 282 K/uL (130-400); RED BLOOD CELL COUNT(AUTO) 4.31 MIL/uL (4.00-5.50); RED CELL DISTRIBUTION WIDTH 13.5 % (11.0-15.5); WHITE BLOOD COUNT (AUTO) 7.3 K/uL (4.8-10.8)
[2019-09-05 08:43] LABS: CREATININE 0.8 mg/dL (0.5-1.5); INR 0.94 (0.85-1.15); PARTIAL THROMBOPLASTIN TIME 22.6 SEC (26.3-35.5); POTASSIUM 4.1 mmol/L (3.5-5.1); PROTHROMBIN TIME 9.9 SEC (9.6-11.6)
[2019-09-05 08:45] LABS: ALBUMIN 3.4 g/dL (3.5-5.0); BILIRUBIN,TOTAL 0.5 mg/dL (0.2-1.0)
[2019-09-05] MEDS ORDERED: FAMOTIDINE/PF 20 MG/2 ML VIAL IV ONE (10:12)
[2019-09-05] MEDS ORDERED: FAMOTIDINE 20MG TAB 20 MG TAB ONE (10:26)
== END 2019-09-05 11:15 | disposition home or self-care (01) ==
LOC: EDH 07:42
DX: R10.13 Epigastric pain (principal); R11.2 Nausea with vomiting, unspecified; R19.7 Diarrhea, unspecified; I48.91 Unspecified atrial fibrillation; E07.9 Disorder of thyroid, unspecified; I10 Essential (primary) hypertension; Z90.710 Acquired absence of both cervix and uterus; Z90.49 Acquired absence of other specified parts of digestive tract; Z98.890 Other specified postprocedural states
CPT/HCPCS: 36415; 71045; 74176; 80053; 81001; 82150; 82550; 83690; 84484; 85025; 85610; 85730; 93005; 99285; J3490

== ENCOUNTER 2019-12-26 19:11 | Emergency (ER) | payer BC ==
[2019-12-26 20:05] LABS: BASOPHILS % (AUTO) 0.7 % (0.0-5.0); HEMATOCRIT 40.4 % (36-48); MEAN CORPUSCULAR HEMOGLOBIN 28.6 pg (27.0-33.0); MEAN CORPUSCULAR HGB CONC 32.4 g/dL (32.0-36.0); MEAN CORPUSCULAR VOLUME 88.2 fL (79-99); NEUTROPHILS % (AUTO) 58.1 % (40.0-77.0); PLATELET COUNT (AUTO) 249 K/uL (130-400); RED BLOOD CELL COUNT(AUTO) 4.58 MIL/uL (4.00-5.50); RED CELL DISTRIBUTION WIDTH 12.6 % (11.0-15.5); WHITE BLOOD COUNT (AUTO) 9.6 K/uL (4.8-10.8)
[2019-12-26 20:15] LABS: CREATININE 0.9 mg/dL (0.5-1.5); POTASSIUM 3.5 mmol/L (3.5-5.1)
[2019-12-26 21:06] LABS: APPEARANCE,URINE Clear (CLEAR); BILIRUBIN,URINE Negative (NEGATIVE); COLOR,URINE Yellow (YELLOW); GLUCOSE, URINE (UA) Negative (NEGATIVE); KETONES,URINE Negative (NEGATIVE); LEUKOCYTE ESTERASE ,URINE Small (NEGATIVE); NITRATE,URINE Negative (NEGATIVE); OCCULT BLOOD,URINE Trace (NEGATIVE); PH,URINE 5.5 (5.0-8.0); PROTEIN,URINE Negative (NEGATIVE); UROBILINOGEN,URINE 0.2 mg/dL (0.2-1.0)
[2019-12-26 21:21] LABS: BACTERIA,URINE None Seen /HPF (None Seen); RBC,URINE None Seen /HPF (0-1); SQUAMOUS EPITHELIAL CELL,UR 0-2 /HPF (0-2)
[2019-12-26] MEDS ORDERED: CEPHALEXIN 500 MG CAPSULE ONE (21:31)
[2019-12-26] MEDS ORDERED: ALPRAZOLAM 0.25 MG TABLET ONE (21:31)
== END 2019-12-26 22:21 | disposition home or self-care (01) ==
LOC: EDH 19:11
DX: N39.0 Urinary tract infection, site not specified (principal); F43.0 Acute stress reaction; R06.00 Dyspnea, unspecified; I10 Essential (primary) hypertension; I48.91 Unspecified atrial fibrillation; E07.9 Disorder of thyroid, unspecified; Z90.49 Acquired absence of other specified parts of digestive tract; Z90.710 Acquired absence of both cervix and uterus; Z98.890 Other specified postprocedural states
CPT/HCPCS: 36415; 71046; 80048; 81001; 84484; 85025; 87077; 87088; 87186; 93005

== ENCOUNTER 2019-12-30 12:32 | Observation (INO) | payer BC ==
[2019-12-30] MEDS ORDERED: ALPRAZOLAM 1 MG TAB PO PRN (13:15)
[2019-12-30] MEDS ORDERED: HYDROMORPHONE HCL 2 MG/ML VIAL IVP PRN (13:15)
[2019-12-30] MEDS ORDERED: CLONIDINE HCL 0.1 MG TABLET PO PRN (13:15)
[2019-12-30] MEDS ORDERED: CEPH500T PO (13:39)
[2019-12-30] MEDS ORDERED: METO-391 PO (13:40)
[2019-12-30] MEDS ORDERED: AEC81 PO (13:41)
[2019-12-30 14:06] LABS: BASOPHILS % (AUTO) 0.6 % (0.0-5.0); EOSINOPHILS % (AUTO) 1.6 % (0.0-8.0); HEMATOCRIT 41.1 % (36-48); LYMPHOCYTES % (AUTO) 29.3 % (21.0-51.0); MEAN CORPUSCULAR HEMOGLOBIN 28.4 pg (27.0-33.0); MEAN CORPUSCULAR HGB CONC 31.9 g/dL (32.0-36.0); MONOCYTES % (AUTO) 9.5 % (3.0-13.0); NEUTROPHILS % (AUTO) 58.9 % (40.0-77.0); PLATELET COUNT (AUTO) 222 K/uL (130-400); RED BLOOD CELL COUNT(AUTO) 4.62 MIL/uL (4.00-5.50); RED CELL DISTRIBUTION WIDTH 12.7 % (11.0-15.5); WHITE BLOOD COUNT (AUTO) 7.1 K/uL (4.8-10.8)
[2019-12-30 14:33] LABS: ALBUMIN 3.7 g/dL (3.5-5.0); BILIRUBIN,TOTAL 0.2 mg/dL (0.2-1.0); CREATININE 0.9 mg/dL (0.5-1.5); POTASSIUM 4.1 mmol/L (3.5-5.1); THYROID STIMULATING HORMONE 7.79 uIU/mL (0.36-3.74); TOTAL PROTEIN, SERUM 7.8 g/dL (6.0-8.3)
[2019-12-30 14:35] LABS: INR 0.93 (0.85-1.15); PARTIAL THROMBOPLASTIN TIME 22.7 SEC (26.3-35.5); PROTHROMBIN TIME 10.1 SEC (9.6-11.6)
[2019-12-30 15:44] LABS: APPEARANCE,URINE Clear (CLEAR); BILIRUBIN,URINE Negative (NEGATIVE); COLOR,URINE Yellow (YELLOW); GLUCOSE, URINE (UA) Negative (NEGATIVE); KETONES,URINE Negative (NEGATIVE); LEUKOCYTE ESTERASE ,URINE Trace (NEGATIVE); NITRATE,URINE Negative (NEGATIVE); OCCULT BLOOD,URINE Small (NEGATIVE); PH,URINE 6.5 (5.0-8.0); PROTEIN,URINE Negative (NEGATIVE); UROBILINOGEN,URINE 0.2 mg/dL (0.2-1.0)
[2019-12-30 16:01] LABS: BACTERIA,URINE Rare /HPF (None Seen); MUCUS,URINE Rare LPF (None Seen); SQUAMOUS EPITHELIAL CELL,UR Few /HPF (0-2)
--- NOTE | 2019-12-30 16:27 | NUR ---
PATIENT PENDING PICC LINE PLACEMENT Addendum: 12/30/19 at 1628 by HESHAM LOPEZ RN RN Amended: Links added.
--- NOTE | 2019-12-30 16:30 | NUR ---
CALLED TO ANNEALING OPERATOR FOR FOLLOW UP ON PICC LINE . PER HOUSE SUP PICC LINE NURSE AWARE OF STAT ORDER .
[2019-12-30] MEDS ORDERED: PROMETHAZINE HCL 25 MG/ML 1ML AMPULE IM PRN (19:15)
[2019-12-30 19:26] VITALS: BP 140/97
[2019-12-30 20:00] VITALS: BP 148/92
[2019-12-30] MEDS: HYDROMORPHONE 1 MG/1 ML AMP IM PRN (20:11)
--- NOTE | 2019-12-30 22:30 | NUR ---
picc jesús garner r.n. to place picc line left upper arm 5 english, tolerated well, stat cxr ordered to confirm placement
[2019-12-30] MEDS: CEFTRIAXONE SODIUM 1 GM IVP SCH (23:05)
[2019-12-30] MEDS ORDERED: 1/2 NORMAL SALINE 1,000 ML IV ONE (23:08)
[2019-12-30] MEDS: 1/2 NORMAL SALINE 1,000 ML IV SCH (23:18)
[2019-12-31] VITALS: BP 108/61
[2019-12-31] MEDS: ONDANSETRON HCL 4 MG/2 ML VIAL IVP PRN ×4 (01:24→20:33)
[2019-12-31] MEDS: HYDROMORPHONE 1 MG/1 ML AMP IM PRN (01:27)
[2019-12-31 03:37] VITALS: BP 106/65
[2019-12-31] MEDS: LEVOTHYROXINE 112 MCG TABLET PO SCH (05:04)
[2019-12-31 05:22] LABS: BASOPHILS % (AUTO) 0.5 % (0.0-5.0); EOSINOPHILS % (AUTO) 3.1 % (0.0-8.0); HEMATOCRIT 38.3 % (36-48); LYMPHOCYTES % (AUTO) 43.9 % (21.0-51.0); MEAN CORPUSCULAR HEMOGLOBIN 28.8 pg (27.0-33.0); MEAN CORPUSCULAR HGB CONC 31.9 g/dL (32.0-36.0); MEAN CORPUSCULAR VOLUME 90.3 fL (79-99); MONOCYTES % (AUTO) 9.6 % (3.0-13.0); NEUTROPHILS % (AUTO) 42.8 % (40.0-77.0); PLATELET COUNT (AUTO) 215 K/uL (130-400); RED BLOOD CELL COUNT(AUTO) 4.24 MIL/uL (4.00-5.50); RED CELL DISTRIBUTION WIDTH 12.7 % (11.0-15.5); WHITE BLOOD COUNT (AUTO) 7.5 K/uL (4.8-10.8)
[2019-12-31 05:46] LABS: ALBUMIN 3.3 g/dL (3.5-5.0); BILIRUBIN,TOTAL 0.3 mg/dL (0.2-1.0); CREATININE 0.9 mg/dL (0.5-1.5)
[2019-12-31 08:00] VITALS: BP 125/75
[2019-12-31] MEDS ORDERED: ONDANSETRON HCL 4 MG/2 ML VIAL IVP SCH (10:45)
[2019-12-31] MEDS: 1/2 NORMAL SALINE 1,000 ML IV SCH ×2 (10:57→19:15)
[2019-12-31 11:00] VITALS: BP 128/78
[2019-12-31 16:00] VITALS: BP 135/81
[2019-12-31] MEDS ORDERED: SODIUM CHLORIDE 0.9% 100 ML IV ONE (16:59)
[2019-12-31] MEDS: CEFTRIAXONE SODIUM 1 GM IVP SCH (17:36)
[2019-12-31 20:00] VITALS: BP 127/79
[2019-12-31] MEDS ORDERED: HYDROMORPHONE HCL 0.5 MG/0.5 ML ML ONE (20:27)
[2020-01-01 00:03] VITALS: BP 132/79
[2020-01-01] MEDS: 1/2 NORMAL SALINE 1,000 ML IV SCH ×2 (00:28→05:23)
[2020-01-01] MEDS: ACETAMINOPHEN 325 MG TAB PO PRN ×2 (03:50→12:01)
[2020-01-01 04:00] VITALS: BP 127/79
[2020-01-01 05:22] LABS: BASOPHILS % (AUTO) 0.5 % (0.0-5.0); EOSINOPHILS % (AUTO) 1.6 % (0.0-8.0); HEMATOCRIT 38.4 % (36-48); LYMPHOCYTES % (AUTO) 26.5 % (21.0-51.0); MEAN CORPUSCULAR HGB CONC 31.8 g/dL (32.0-36.0); MEAN CORPUSCULAR VOLUME 88.3 fL (79-99); MONOCYTES % (AUTO) 8.8 % (3.0-13.0); NEUTROPHILS % (AUTO) 62.3 % (40.0-77.0); PLATELET COUNT (AUTO) 212 K/uL (130-400); RED BLOOD CELL COUNT(AUTO) 4.35 MIL/uL (4.00-5.50); RED CELL DISTRIBUTION WIDTH 12.2 % (11.0-15.5); WHITE BLOOD COUNT (AUTO) 7.4 K/uL (4.8-10.8)
[2020-01-01 05:32] LABS: CREATININE 0.9 mg/dL (0.5-1.5); POTASSIUM 3.8 mmol/L (3.5-5.1)
[2020-01-01] MEDS: LEVOTHYROXINE 112 MCG TABLET PO SCH (06:26)
[2020-01-01 08:00] VITALS: BP 129/82
[2020-01-01 11:42] VITALS: BP 125/66
--- NOTE | 2020-01-01 16:33 | NUR ---
DC PICC LINE DC PICC LINE, PATIENT TOLERATED PROCEDURE WITHOUT INCIDENT. BLEEDING CONTROLLED, CATHLON INTACT. APPLIED DIRECT PRESSURE FOR APPROX 5 MINUTES, COVERED WITH STERILE GAUZE AND SECURED WITH TEGADERM. PATIENT TOLERATED WITHOUT INCIDENT.
== END 2020-01-01 16:30 | disposition home or self-care (01) ==
LOC: EDH 12:32 → EDHIP 12:57 → 3AH 13:03
PROVIDERS: ADMIT Internal Medicine; ATTEND Internal Medicine
DX: K85.90 Acute pancreatitis without necrosis or infection, unspecified (principal); R11.2 Nausea with vomiting, unspecified; R10.9 Unspecified abdominal pain
CPT/HCPCS: 36415; 71045; 74176; 80048; 80053 ×2; 81001; 83690 ×3; 84439; 84443; 84484; 85025 ×3; 85610; 85730; 87088; 96361 ×3; 96372 ×2; 96374; 96375; 96376; 99285; C1894; G0378 ×13; J0696 ×2; J1170 ×4; J2405 ×4; J2550

== ENCOUNTER → 2020-03-29 | Outpatient (CLI) | payer BC ==
[~2020-03-29] MED LIST changes: +AEC81 PO; -ASPI-988 PO; +CEPH500T PO; +METO-391 PO; -METO25TA6 PO
== END | disposition home or self-care (01) ==
LOC: OIH 13:11
PROVIDERS: ATTEND Internal Medicine
DX: R07.89 Other chest pain (principal)
CPT/HCPCS: 71046; 71100

== ENCOUNTER 2021-08-09 10:54 | Inpatient (IN) | payer BC, OTHER ==
[~2021-08-09] VITALS: Ht 160 cm; Wt 68.3 kg
[2021-08-09 11:50] VITALS: BP 132/87
[2021-08-09] MEDS ORDERED: LEVO112T4 PO (13:18)
[2021-08-09] MEDS ORDERED: ASPI-1026 PO (13:18)
[2021-08-09] MEDS ORDERED: ALPR0.5T8 PO (13:18)
[2021-08-09] MEDS ORDERED: METO-391 PO (13:18)
[2021-08-09] MEDS: 0.9%NACL 1000ML 1,000 ML IV SCH ×4 (13:30→16:51)
[2021-08-09 13:33] LABS: HEMATOCRIT 41.1 % (36-48); MEAN CORPUSCULAR HEMOGLOBIN 28.7 pg (27.0-33.0); MEAN CORPUSCULAR HGB CONC 31.1 g/dL (32.0-36.0); MEAN CORPUSCULAR VOLUME 92.2 fL (79-99); RED BLOOD CELL COUNT(AUTO) 4.46 MIL/uL (4.00-5.50); RED CELL DISTRIBUTION WIDTH 12.8 % (11.0-15.5)
[2021-08-09 13:48] LABS: CREATININE 0.8 mg/dL (0.5-1.5)
[2021-08-09 13:49] LABS: INR 1.01 (0.85-1.15)
[2021-08-09 13:50] LABS: PARTIAL THROMBOPLASTIN TIME 22.8 SEC (26.3-35.5)
[2021-08-09] MEDS ORDERED: VANCOMYCIN PROTOCOL PER PHARMACY IV SCH (14:00)
[2021-08-09] MEDS ORDERED: ALPRAZOLAM 0.5 MG TABLET PO PRN (14:00)
[2021-08-09] MEDS ORDERED: ACETAMINOPHEN 325 MG TAB PO PRN (14:00)
[2021-08-09] MEDS ORDERED: CLONIDINE HCL 0.1 MG TABLET PO PRN (14:00)
[2021-08-09] MEDS ORDERED: LACTULOSE 20 GM/30 ML UDCUP PO PRN (14:00)
[2021-08-09] MEDS ORDERED: ZOSYN 3.375GM +NS 50ML IV SCH (14:00)
[2021-08-09] MEDS: PHARMACY COMMUNICATION MISC SCH ×5 (14:30→22:30)
[2021-08-09 14:32] LABS: APPEARANCE,URINE Clear (CLEAR); BILIRUBIN,URINE Negative (NEGATIVE); COLOR,URINE Yellow (YELLOW); GLUCOSE, URINE (UA) Negative (NEGATIVE); KETONES,URINE Negative (NEGATIVE); LEUKOCYTE ESTERASE ,URINE Trace (NEGATIVE); NITRATE,URINE Negative (NEGATIVE); OCCULT BLOOD,URINE Trace (NEGATIVE); PH,URINE 5.5 (5.0-8.0); PROTEIN,URINE Negative (NEGATIVE); UROBILINOGEN,URINE 0.2 mg/dL (0.2-1.0)
[2021-08-09 14:50] LABS: BACTERIA,URINE Rare /HPF (None Seen); RBC,URINE None Seen /HPF (0-1)
[2021-08-09] MEDS ORDERED: 0.9% NACL 250ML 250 ML IV SCH (15:30)
[2021-08-09] MEDS ORDERED: VANCOMYCIN KIT 1 GM/250 ML IV.KIT IV SCH (15:30)
[2021-08-09 16:00] VITALS: BP 128/77
[2021-08-09] MEDS: CEFTRIAXONE 1G VIAL IVP SCH (16:49)
[2021-08-09] MEDS: 1/2 NS 1000ML 1,000 ML IV SCH (18:48)
[2021-08-09] MEDS: HYDROMORPHONE 0.5 MG SYG (0.5MG/0.5ML) IVP PRN ×2 (18:48→23:04)
[2021-08-09] MEDS: ZOSYN 3.375GM +NS 50ML IV SCH (21:20)
[2021-08-09] MEDS: FAMOTIDINE 20MG TAB PO SCH (21:20)
[2021-08-09 22:15] VITALS: BP 111/70
[2021-08-09] MEDS: ONDANSETRON 4MG INJ IVP PRN (23:03)
[2021-08-10] MEDS: PHARMACY COMMUNICATION MISC SCH ×7 (00:30→12:19)
[2021-08-10 00:36] VITALS: BP 100/60
[2021-08-10 04:36] VITALS: BP 140/76
[2021-08-10] MEDS: ZOSYN 3.375GM +NS 50ML IV SCH ×2 (04:52→13:55)
[2021-08-10] MEDS: 1/2 NS 1000ML 1,000 ML IV SCH ×3 (04:52→17:30)
[2021-08-10] MEDS: HYDROMORPHONE 0.5 MG SYG (0.5MG/0.5ML) IVP PRN ×3 (04:54→20:35)
[2021-08-10 06:14] LABS: HEMATOCRIT 33.7 % (36-48); MEAN CORPUSCULAR HGB CONC 32.6 g/dL (32.0-36.0); MEAN CORPUSCULAR VOLUME 88.9 fL (79-99); RED BLOOD CELL COUNT(AUTO) 3.79 MIL/uL (4.00-5.50); RED CELL DISTRIBUTION WIDTH 12.9 % (11.0-15.5); WHITE BLOOD COUNT (AUTO) 6.9 K/uL (4.8-10.8)
[2021-08-10 06:40] LABS: CREATININE 0.9 mg/dL (0.5-1.5); POTASSIUM 3.8 mmol/L (3.5-5.1)
[2021-08-10 08:00] VITALS: BP 109/64
[2021-08-10] MEDS ORDERED: 0.9%NACL 100ML 100 ML IV SCH (09:00)
[2021-08-10] MEDS ORDERED: VANCOMYCIN 500MG+NS 100ML IVPB IV SCH (09:00)
[2021-08-10] MEDS: ONDANSETRON 4MG INJ IVP PRN ×2 (09:06→20:23)
[2021-08-10] MEDS: FAMOTIDINE 20MG TAB PO SCH ×2 (09:06→20:23)
[2021-08-10 12:00] VITALS: BP 134/81
[2021-08-10] MEDS: CEFTRIAXONE 1G VIAL IVP SCH (13:55)
[2021-08-10] MEDS ORDERED: COMPOUND PO MISCELLANEOUS 1 EACH MISC MISC PRN (15:30)
[2021-08-10 16:00] VITALS: BP 106/61
[2021-08-10] MEDS ORDERED: VANCOMYCIN 500MG VIAL PO SCH (16:00)
[2021-08-10] MEDS: VANCOMYCIN 250MG/5ML ORAL SOLUTION 40ML PO SCH ×2 (18:08)
[2021-08-10 20:28] VITALS: BP 113/60
[2021-08-11] VITALS (7 sets, daily range): BP systolic 102–129; BP diastolic 63–76
[2021-08-11] MEDS: VANCOMYCIN 250MG/5ML ORAL SOLUTION 40ML PO SCH ×8 (00:16→18:29)
[2021-08-11] MEDS: HYDROMORPHONE 0.5 MG SYG (0.5MG/0.5ML) IVP PRN ×4 (02:59→20:39)
[2021-08-11] MEDS: ONDANSETRON 4MG INJ IVP PRN ×4 (03:12→20:39)
[2021-08-11] MEDS: 1/2 NS 1000ML 1,000 ML IV SCH ×4 (03:21→22:25)
[2021-08-11] MEDS: FAMOTIDINE 20MG TAB PO SCH ×2 (08:51→20:38)
[2021-08-11] MEDS ORDERED: NITAZOXANIDE 500 MG TAB PO SCH (13:00)
[2021-08-11] MEDS: NITAZOXANIDE 500 MG TAB PO SCH (20:38)
[2021-08-11 22:09] LABS: APPEARANCE,URINE CLEAR (CLEAR); BILIRUBIN,URINE Negative (NEGATIVE); COLOR,URINE Yellow (YELLOW); GLUCOSE, URINE (UA) Negative (NEGATIVE); KETONES,URINE Negative (NEGATIVE); LEUKOCYTE ESTERASE ,URINE Negative (NEGATIVE); NITRATE,URINE Negative (NEGATIVE); OCCULT BLOOD,URINE Negative (NEGATIVE); PROTEIN,URINE Negative (NEGATIVE); UROBILINOGEN,URINE 0.2 mg/dL (0.2-1.0)
[2021-08-11 22:38] LABS: BACTERIA,URINE None Seen /HPF (None Seen); RBC,URINE 0-1 /HPF (0-1); WBC,URINE None Seen /HPF (0-1)
[2021-08-12] MEDS: VANCOMYCIN 250MG/5ML ORAL SOLUTION 40ML PO SCH ×8 (00:18→17:11)
[2021-08-12] MEDS: ONDANSETRON 4MG INJ IVP PRN ×4 (03:33→23:54)
[2021-08-12] MEDS: HYDROMORPHONE 0.5 MG SYG (0.5MG/0.5ML) IVP PRN ×4 (03:34→22:13)
[2021-08-12 04:00] VITALS: BP 104/60
[2021-08-12] MEDS: 1/2 NS 1000ML 1,000 ML IV SCH ×3 (05:00→18:34)
[2021-08-12 07:15] VITALS: BP 123/74
[2021-08-12] MEDS: CHOLESTYRAMINE PACKET 4 GM PACKET PO SCH ×3 (08:20→17:06)
[2021-08-12] MEDS: NITAZOXANIDE 500 MG TAB PO SCH ×2 (08:20→21:30)
[2021-08-12] MEDS: FAMOTIDINE 20MG TAB PO SCH ×2 (08:20→20:37)
[2021-08-12 11:15] VITALS: BP 117/68
[2021-08-12 15:15] VITALS: BP 125/76
[2021-08-12 19:58] VITALS: BP 130/80
[2021-08-13] VITALS (7 sets, daily range): BP systolic 112–136; BP diastolic 67–92
[2021-08-13] MEDS: 1/2 NS 1000ML 1,000 ML IV SCH ×3 (01:15→14:20)
[2021-08-13] MEDS: HYDROMORPHONE 0.5 MG SYG (0.5MG/0.5ML) IVP PRN ×4 (04:20→21:47)
[2021-08-13] MEDS: NITAZOXANIDE 500 MG TAB PO SCH ×2 (09:00→21:38)
[2021-08-13] MEDS: CHOLESTYRAMINE PACKET 4 GM PACKET PO SCH ×3 (10:08→18:04)
[2021-08-13] MEDS: ONDANSETRON 4MG INJ IVP PRN ×2 (10:09→21:42)
[2021-08-13] MEDS: FAMOTIDINE 20MG TAB PO SCH ×2 (10:10→21:39)
[2021-08-13] MEDS: VANCOMYCIN 250MG/5ML ORAL SOLUTION 40ML PO SCH ×4 (12:00→18:04)
[2021-08-14] MEDS: 1/2 NS 1000ML 1,000 ML IV SCH ×5 (02:55→23:40)
[2021-08-14] MEDS: HYDROMORPHONE 0.5 MG SYG (0.5MG/0.5ML) IVP PRN ×2 (03:00→13:45)
[2021-08-14 03:11] VITALS: BP 131/70
[2021-08-14] MEDS: CHOLESTYRAMINE PACKET 4 GM PACKET PO SCH ×3 (06:42→19:51)
[2021-08-14] MEDS: VANCOMYCIN 250MG/5ML ORAL SOLUTION 40ML PO SCH ×8 (06:43→19:51)
[2021-08-14 07:30] VITALS: BP 112/60
[2021-08-14 08:07] LABS: HEMATOCRIT 35.4 % (36-48); MEAN CORPUSCULAR HEMOGLOBIN 28.3 pg (27.0-33.0); MEAN CORPUSCULAR HGB CONC 31.9 g/dL (32.0-36.0); MEAN CORPUSCULAR VOLUME 88.5 fL (79-99); RED CELL DISTRIBUTION WIDTH 12.5 % (11.0-15.5); WHITE BLOOD COUNT (AUTO) 6.1 K/uL (4.8-10.8)
[2021-08-14 08:27] LABS: ALBUMIN 3.3 g/dL (3.5-5.0); BILIRUBIN,TOTAL 0.4 mg/dL (0.2-1.0); CREATININE 0.8 mg/dL (0.5-1.5); POTASSIUM 3.6 mmol/L (3.5-5.1)
[2021-08-14] MEDS: NITAZOXANIDE 500 MG TAB PO SCH ×2 (10:20→20:44)
[2021-08-14] MEDS: PANTOPRAZOLE 40 MG TAB DR PO SCH ×2 (10:22→20:44)
[2021-08-14 11:00] VITALS: BP 140/78
[2021-08-14] MEDS: ONDANSETRON 4MG INJ IVP PRN (13:45)
[2021-08-14 16:00] VITALS: BP 128/71
[2021-08-14 19:00] VITALS: BP 108/62
[2021-08-15] VITALS: BP 109/69
[2021-08-15] MEDS: VANCOMYCIN 250MG/5ML ORAL SOLUTION 40ML PO SCH ×6 (00:17→12:19)
[2021-08-15] MEDS: ONDANSETRON 4MG INJ IVP PRN ×4 (02:08→22:21)
[2021-08-15 04:00] VITALS: BP 117/73
[2021-08-15 07:30] VITALS: BP 132/77
[2021-08-15] MEDS: CHOLESTYRAMINE PACKET 4 GM PACKET PO SCH ×3 (07:38→16:28)
[2021-08-15] MEDS: 1/2 NS 1000ML 1,000 ML IV SCH ×3 (07:39→18:41)
[2021-08-15] MEDS: PANTOPRAZOLE 40 MG TAB DR PO SCH ×2 (08:31→22:21)
[2021-08-15] MEDS: NITAZOXANIDE 500 MG TAB PO SCH ×2 (08:31→22:21)
[2021-08-15 11:00] VITALS: BP 110/67
[2021-08-15] MEDS ORDERED: HYDROMORPHONE 0.5 MG SYG (0.5MG/0.5ML) IVP PRN (12:30)
[2021-08-15] MEDS ORDERED: HYDROMORPHONE 0.5 MG SYG (0.5MG/0.5ML) ONE (12:38)
[2021-08-15] MEDS: HYDROMORPHONE 0.5 MG SYG (0.5MG/0.5ML) IVP PRN ×2 (12:42→22:21)
[2021-08-15] MEDS ORDERED: LOPERAMIDE HCL 2 MG CAP PO SCH (15:30)
[2021-08-15 16:00] VITALS: BP 102/63
[2021-08-15] MEDS ORDERED: DICYCLOMINE HCL 20 MG TAB PO PRN (16:30)
[2021-08-15] MEDS: SUCRALFATE 1 GM TABLET PO SCH ×2 (16:30→22:20)
[2021-08-15 20:12] VITALS: BP 130/82
[2021-08-16] VITALS (7 sets, daily range): BP systolic 100–134; BP diastolic 47–74
[2021-08-16] MEDS: 1/2 NS 1000ML 1,000 ML IV SCH ×4 (01:18→21:10)
[2021-08-16] MEDS: SUCRALFATE 1 GM TABLET PO SCH ×4 (04:40→21:11)
[2021-08-16 05:13] LABS: HEMATOCRIT 35.3 % (36-48); MEAN CORPUSCULAR HEMOGLOBIN 28.4 pg (27.0-33.0); MEAN CORPUSCULAR HGB CONC 31.2 g/dL (32.0-36.0); RED BLOOD CELL COUNT(AUTO) 3.88 MIL/uL (4.00-5.50); RED CELL DISTRIBUTION WIDTH 12.7 % (11.0-15.5); WHITE BLOOD COUNT (AUTO) 6.4 K/uL (4.8-10.8)
[2021-08-16 05:21] LABS: CREATININE 0.8 mg/dL (0.5-1.5); POTASSIUM 3.7 mmol/L (3.5-5.1)
[2021-08-16] MEDS: NITAZOXANIDE 500 MG TAB PO SCH ×2 (09:23→21:10)
[2021-08-16] MEDS: CHOLESTYRAMINE PACKET 4 GM PACKET PO SCH ×3 (09:23→16:17)
[2021-08-16] MEDS: PANTOPRAZOLE 40 MG TAB DR PO SCH ×2 (09:23→21:10)
[2021-08-16] MEDS ORDERED: ACETAMINOPHEN 325 MG TAB PO PRN (11:00)
[2021-08-16] MEDS: TRAMADOL HCL 50 MG TABLET PO PRN (12:13)
[2021-08-16] MEDS: LOPERAMIDE HCL 2 MG CAP PO PRN (21:10)
[2021-08-16] MEDS: ONDANSETRON 4MG INJ IVP PRN (21:12)
[2021-08-17 03:37] VITALS: BP 102/59
[2021-08-17] MEDS: SUCRALFATE 1 GM TABLET PO SCH ×4 (04:43→20:57)
[2021-08-17 05:32] LABS: HEMATOCRIT 37.4 % (36-48); MEAN CORPUSCULAR HEMOGLOBIN 28.3 pg (27.0-33.0); MEAN CORPUSCULAR HGB CONC 31.3 g/dL (32.0-36.0); MEAN CORPUSCULAR VOLUME 90.6 fL (79-99); RED BLOOD CELL COUNT(AUTO) 4.13 MIL/uL (4.00-5.50); RED CELL DISTRIBUTION WIDTH 12.7 % (11.0-15.5); WHITE BLOOD COUNT (AUTO) 6.2 K/uL (4.8-10.8)
[2021-08-17 05:45] LABS: CREATININE 0.8 mg/dL (0.5-1.5); POTASSIUM 3.9 mmol/L (3.5-5.1)
[2021-08-17] MEDS: 1/2 NS 1000ML 1,000 ML IV SCH ×3 (06:00→17:10)
[2021-08-17] MEDS: PANTOPRAZOLE 40 MG TAB DR PO SCH ×2 (07:58→19:45)
[2021-08-17] MEDS: CHOLESTYRAMINE PACKET 4 GM PACKET PO SCH ×3 (07:58→15:53)
[2021-08-17] MEDS: NITAZOXANIDE 500 MG TAB PO SCH ×2 (07:58→19:45)
[2021-08-17 08:00] VITALS: BP 112/72
[2021-08-17] MEDS: ONDANSETRON 4MG INJ IVP PRN ×2 (08:04→16:02)
[2021-08-17 12:00] VITALS: BP 133/74
[2021-08-17] MEDS: TRAMADOL HCL 50 MG TABLET PO PRN ×2 (13:44→20:57)
[2021-08-17 16:00] VITALS: BP 120/72
[2021-08-17] MEDS: LOPERAMIDE HCL 2 MG CAP PO PRN (17:08)
[2021-08-17 20:01] VITALS: BP 123/57
[2021-08-17 23:51] VITALS: BP 116/54
[2021-08-18] MEDS: 1/2 NS 1000ML 1,000 ML IV SCH ×3 (03:08→17:15)
[2021-08-18 03:36] VITALS: BP 120/62
[2021-08-18] MEDS: SUCRALFATE 1 GM TABLET PO SCH ×4 (05:23→20:54)
[2021-08-18] MEDS ORDERED: DIATR MEGLU/DIATRIZOATE SODIUM 30 ML BOTTLE ONE (06:59)
[2021-08-18] MEDS: CHOLESTYRAMINE PACKET 4 GM PACKET PO SCH ×3 (07:30→17:09)
[2021-08-18] MEDS: ONDANSETRON 4MG INJ IVP PRN ×2 (07:40→21:00)
[2021-08-18 08:00] VITALS: BP 119/68
[2021-08-18] MEDS ORDERED: IOHEXOL-350 75 ML VIAL IV ONE (09:25)
[2021-08-18] MEDS: NITAZOXANIDE 500 MG TAB PO SCH ×2 (10:15→20:54)
[2021-08-18] MEDS: PANTOPRAZOLE 40 MG TAB DR PO SCH ×2 (10:15→20:54)
[2021-08-18 11:47] VITALS: BP 126/75
[2021-08-18] MEDS: TRAMADOL HCL 50 MG TABLET PO PRN ×2 (15:03→20:55)
[2021-08-18 16:00] VITALS: BP 110/60
[2021-08-18] MEDS: HYDROMORPHONE 0.5 MG SYG (0.5MG/0.5ML) IVP PRN (17:19)
[2021-08-18 20:00] VITALS: BP 113/69
[2021-08-19] VITALS: BP 109/65
[2021-08-19] MEDS: 1/2 NS 1000ML 1,000 ML IV SCH ×2 (00:07→16:46)
[2021-08-19] MEDS: HYDROMORPHONE 0.5 MG SYG (0.5MG/0.5ML) IVP PRN ×2 (00:07→14:30)
[2021-08-19] MEDS: ONDANSETRON 4MG INJ IVP PRN ×2 (03:21→14:29)
[2021-08-19 04:00] VITALS: BP 106/69
[2021-08-19] MEDS: SUCRALFATE 1 GM TABLET PO SCH ×4 (05:26→21:41)
[2021-08-19] MEDS: CHOLESTYRAMINE PACKET 4 GM PACKET PO SCH ×3 (07:30→17:00)
[2021-08-19 08:00] VITALS: BP 121/76
[2021-08-19] MEDS: NITAZOXANIDE 500 MG TAB PO SCH ×2 (11:31→20:30)
[2021-08-19] MEDS: PANTOPRAZOLE 40 MG TAB DR PO SCH ×2 (11:31→20:30)
[2021-08-19 12:00] VITALS: BP 119/77
[2021-08-19 15:45] VITALS: BP 118/74
[2021-08-19 20:00] VITALS: BP 115/67
[2021-08-19] MEDS: TRAMADOL HCL 50 MG TABLET PO PRN (21:42)
[2021-08-20] VITALS (7 sets, daily range): BP systolic 96–144; BP diastolic 56–81
[2021-08-20] MEDS: 1/2 NS 1000ML 1,000 ML IV SCH (01:17)
[2021-08-20] MEDS: SUCRALFATE 1 GM TABLET PO SCH ×3 (05:07→18:02)
[2021-08-20 06:59] LABS: BASOPHILS % (AUTO) 1.1 % (0.0-5.0); EOSINOPHILS % (AUTO) 3.9 % (0.0-8.0); HEMATOCRIT 37.3 % (36-48); LYMPHOCYTES % (AUTO) 41.4 % (21.0-51.0); MEAN CORPUSCULAR HEMOGLOBIN 28.4 pg (27.0-33.0); MEAN CORPUSCULAR HGB CONC 31.9 g/dL (32.0-36.0); MONOCYTES % (AUTO) 11.1 % (3.0-13.0); NEUTROPHILS % (AUTO) 42.3 % (40.0-77.0); PLATELET COUNT (AUTO) 197 K/uL (130-400); RED BLOOD CELL COUNT(AUTO) 4.19 MIL/uL (4.00-5.50); RED CELL DISTRIBUTION WIDTH 12.5 % (11.0-15.5); WHITE BLOOD COUNT (AUTO) 5.7 K/uL (4.8-10.8)
[2021-08-20 07:14] LABS: ALBUMIN 3.4 g/dL (3.5-5.0); BILIRUBIN,TOTAL 0.5 mg/dL (0.2-1.0); CREATININE 0.9 mg/dL (0.5-1.5); POTASSIUM 3.8 mmol/L (3.5-5.1); TOTAL PROTEIN, SERUM 7.4 g/dL (6.0-8.3)
[2021-08-20 08:35] LABS: APPEARANCE,URINE Clear (CLEAR); BILIRUBIN,URINE Negative (NEGATIVE); COLOR,URINE Yellow (YELLOW); GLUCOSE, URINE (UA) Negative (NEGATIVE); KETONES,URINE Negative (NEGATIVE); LEUKOCYTE ESTERASE ,URINE Small (NEGATIVE); NITRATE,URINE Negative (NEGATIVE); OCCULT BLOOD,URINE Trace (NEGATIVE); PH,URINE 6.5 (5.0-8.0); PROTEIN,URINE Negative (NEGATIVE); UROBILINOGEN,URINE 0.2 mg/dL (0.2-1.0)
[2021-08-20 08:47] LABS: BACTERIA,URINE Rare /HPF (None Seen); RBC,URINE 0-1 /HPF (0-1); SQUAMOUS EPITHELIAL CELL,UR Rare /HPF (0-2); WBC,URINE 0-1 /HPF (0-1)
[2021-08-20] MEDS: NITAZOXANIDE 500 MG TAB PO SCH ×2 (10:22→20:55)
[2021-08-20] MEDS: PANTOPRAZOLE 40 MG TAB DR PO SCH ×2 (10:22→20:55)
[2021-08-20] MEDS: TRAMADOL HCL 50 MG TABLET PO PRN (18:10)
[2021-08-21] VITALS (14 sets, daily range): BP systolic 101–151; BP diastolic 49–84
[2021-08-21] MEDS: SUCRALFATE 1 GM TABLET PO SCH ×4 (00:19→15:45)
[2021-08-21] MEDS ORDERED: PROPOFOL 10 MG/ML 20ML VIAL IV ONE (12:49)
[2021-08-21] MEDS: PANTOPRAZOLE 40 MG TAB DR PO SCH (15:45)
[2021-08-21] MEDS: NITAZOXANIDE 500 MG TAB PO SCH (15:45)
== END 2021-08-21 18:55 | disposition home or self-care (01) | DRG 372 ==
LOC: EDH 10:54 → OBSVTOIN 10:55 → 3CH 10:55
PROVIDERS: ADMIT Internal Medicine; ATTEND Internal Medicine
PROC: 0DB68ZX Excision of Stomach, Via Natural or Artificial Opening Endoscopic, Diagnostic (ICD-10-PCS; principal; 2021-08-21)
DX: A04.71 Enterocolitis due to Clostridium difficile, recurrent (principal); N39.0 Urinary tract infection, site not specified; I48.0 Paroxysmal atrial fibrillation; I10 Essential (primary) hypertension; F41.9 Anxiety disorder, unspecified; E86.0 Dehydration; E78.5 Hyperlipidemia, unspecified; A07.2 Cryptosporidiosis; K31.89 Other diseases of stomach and duodenum; K25.9 Gastric ulcer, unspecified as acute or chronic, without hemorrhage or perforation; K29.70 Gastritis, unspecified, without bleeding; R53.81 Other malaise; K76.0 Fatty (change of) liver, not elsewhere classified; Z86.19 Personal history of other infectious and parasitic diseases; Z87.440 Personal history of urinary (tract) infections; Z90.710 Acquired absence of both cervix and uterus; M51.34 Other intervertebral disc degeneration, thoracic region
CPT/HCPCS: 36415; 43239; 72131; 74176; 74178; 76700; 80048; 80053; 80202; 81001; 83605; 85025; 85027; 85610; 85651; 85730; 87040; 87088; 87324; 87507; 93005; A4606; G0378; J0696; J1170; J2405; J2543; J2704; J3370; J7050; Q9963; Q9967

== ENCOUNTER → 2023-12-11 | Outpatient (CLI) | payer OTHER ==
[~2023-12-11] MED LIST changes: -AEC81 PO; +ALPR0.5T8 PO; -CEPH500T PO
== END | disposition home or self-care (01) ==
LOC: RAH 08:13
PROVIDERS: ATTEND Internal Medicine Gastroenterology
DX: K80.30 Calculus of bile duct with cholangitis, unspecified, without obstruction (principal); R10.11 Right upper quadrant pain
CPT/HCPCS: 74181; S8037

== ENCOUNTER → 2024-02-12 | Outpatient (CLI) | payer OTHER | END | disposition home or self-care (01) | LOC: SHCH 14:11 | PROVIDERS: ATTEND Student in an Organized Health Care Education/Training Program | DX: I08.0 Rheumatic disorders of both mitral and aortic valves (principal); I73.9 Peripheral vascular disease, unspecified; R07.9 Chest pain, unspecified; R00.2 Palpitations; I77.810 Thoracic aortic ectasia | CPT/HCPCS: 93306; 93356; 93925 ==

== ENCOUNTER → 2024-02-18 | Outpatient (CLI) | payer OTHER ==
[~2024-02-18] MED LIST changes: +IOHEXOL 350 MG/ML 100ML INFUS..BTL IV ONE; +METOPROLOL TARTRATE 1 MG/ML 5ML VIAL IV ONE
== END | disposition home or self-care (01) ==
LOC: RAH 07:48
PROVIDERS: ATTEND Student in an Organized Health Care Education/Training Program
DX: I25.10 Atherosclerotic heart disease of native coronary artery without angina pectoris (principal); R07.9 Chest pain, unspecified; R00.2 Palpitations
CPT/HCPCS: 75574; J3490; Q9967

== ENCOUNTER 2025-02-13 13:33 | Emergency (ER) | payer OTHER ==
[~2025-02-13] VITALS: Ht 160 cm; Wt 68.0 kg
[~2025-02-13 13:33] MED LIST changes: -IOHEXOL 350 MG/ML 100ML INFUS..BTL IV ONE; -METOPROLOL TARTRATE 1 MG/ML 5ML VIAL IV ONE
[2025-02-13 14:25] LABS: APPEARANCE,URINE CLEAR (CLEAR); BILIRUBIN,URINE NEGATIVE (NEGATIVE); COLOR,URINE LIGHT-YELLOW (YELLOW); GLUCOSE, URINE (UA) NEGATIVE (NEGATIVE); KETONES,URINE NEGATIVE (NEGATIVE); LEUKOCYTE ESTERASE ,URINE 75 Leu/uL (NEGATIVE); NITRATE,URINE NEGATIVE (NEGATIVE); OCCULT BLOOD,URINE SMALL (NEGATIVE); PROTEIN,URINE NEGATIVE (NEGATIVE); UROBILINOGEN,URINE 0.2 mg/dL (0.2-1.0)
[2025-02-13 14:33] LABS: BACTERIA,URINE RARE /HPF (None Seen); MUCUS,URINE RARE LPF (None Seen); SQUAMOUS EPITHELIAL CELL,UR FEW /HPF (0-2)
[2025-02-13 15:03] LABS: BASOPHILS # (AUTO) 0.06 K/uL (0.00-0.20); BASOPHILS % (AUTO) 0.7 % (0.0-5.0); EOSINOPHILS # (AUTO) 0.18 K/uL (0.00-0.70); EOSINOPHILS % (AUTO) 2.1 % (0.0-8.0); HEMATOCRIT 45.5 % (36-48); IMMATURE GRANULOCYTE ABSOLUTE 0.03 K/uL (0-1); LYMPHOCYTES # (AUTO) 2.8 K/uL (1.0-4.8); LYMPHOCYTES % (AUTO) 31.9 % (21.0-51.0); MEAN CORPUSCULAR HEMOGLOBIN 28.8 pg (27.0-33.0); MEAN CORPUSCULAR VOLUME 92.9 fL (79-99); MONOCYTES # (AUTO) 0.7 K/uL (0.1-1.0); MONOCYTES % (AUTO) 8.6 % (3.0-13.0); NEUTROPHILS # (AUTO) 4.9 K/uL (1.8-7.7); NEUTROPHILS % (AUTO) 56.4 % (40.0-77.0); PLATELET COUNT (AUTO) 226 K/uL (130-400); RED CELL DISTRIBUTION WIDTH 12.8 % (11.0-15.5); WHITE BLOOD COUNT (AUTO) 8.6 K/uL (4.8-10.8)
[2025-02-13 15:17] LABS: CREATININE 0.9 mg/dL (0.5-1.0); POTASSIUM 4.1 mmol/L (3.5-5.1)
--- NOTE | 2025-02-13 15:22 | HMCIMG ---
US ABD LIMITED/ABD WALL REASON: LEFT LOWER ABD SWELLING. COMPARISON: None TECHNIQUE: Left lower abdominal wall ultrasound study was performed. FINDINGS: In the region of interest in the left lower anterior abdominal wall, there is cystic focus measuring 8 x 6 x 8 mm with peripheral flow may be related to a small subcutaneous abscess. IMPRESSION: In the region of interest in the left lower anterior abdominal wall, there is cystic focus measuring 8 x 6 x 8 mm with peripheral flow may be related to a small subcutaneous abscess.
--- NOTE | 2025-02-13 15:27 | ERN ---
General Chief Complaint: Abscess Stated Complaint: LT PELVIC PAIN Time Seen by MD: 13:37 Source: patient History of Present Illness Initial Comments PATIENT IS A 64-YEAR-OLD FEMALE COMING IN TO BE EVALUATED FOR LEFT LOWER ABDOMINAL DISCOMFORT. SHE STATES THAT SHE FEELS IF SHE HAS A ABSCESS THERE. SHE STATES HE HAS HAD MULTIPLE SURGERIES IN THE PAST. NO FEVER NO CHILLS. Allergies: Coded Allergies: No Known Allergies (Verified Allergy, Unknown, 07/07/17) Home Meds Reported Medications Levothyroxine Sodium (Synthroid 100 Mcg Tab) 100 Mcg Tablet, 100 MCG PO DAILYB KFST, TAB 08/04/22 Metoprolol Succinate (Metoprolol Succinate) 50 Mg Tab.er.24h, 50 MG PO DAILY, TAB 08/09/21 Alprazolam (Alprazolam) 0.5 Mg Tablet, 0.5 MG PO TID PRN for ANXIETY, TAB 08/09/21 Past Medical History Past Medical History: Hypertension, Hypothyroid, Other Medical History Other: C DIFF, E COLI Past Surgical History: Appendectomy, Hysterectomy, Cholecystectomy, Other, BTL, Surgical History Other: BACK ROS Dictation CONSTITUTIONAL: NO CHILLS, NO FEVER, NO WEAKNESS, NO DIAPHORESIS, NO MALAISE. HEAD/FACE: NO SIGNS OF TRAUMA. EENT: NO EYE PAIN, NO BLURRED VISION, NO TEARING, NO DOUBLE VISION, NO EAR PAIN, NO EAR DISCHARGE, NO NOSE PAIN, NO NASAL CONGESTION, NO THROAT PAIN, NO THROAT SWELLING, NO MOUTH PAIN. RESPIRATORY: NO COUGH, NO ORTHOPNEA, NO SOB, NO STRIDOR, NO WHEEZING. CARDIOVASCULAR: NO CHEST PAIN, NO EDEMA, NO PALPITATIONS, NO SYNCOPE. GASTROINTESTINAL/ABDOMINAL: NO ABDOMINAL PAIN, NO CONSTIPATION, NO DIARRHEA, NO NAUSEA, NO VOMITING. GENITOURINARY: NO ABNORMAL DISCHARGE, NO DYSURIA, NO FREQUENT URINATION, NO HEMATURIA. NO COMPLAINTS OF PAIN IN THE GENITALS. MUSCULOSKELETAL: NO BACK PAIN, NO GOUT, NO JOINT PAIN, NO JOINT SWELLING, NO MUSCLE PAIN, NO MUSCLE STIFFNESS, NO NECK PAIN. INTEGUMENTARY: NO CHANGE IN COLOR, NO CHANGE IN HAIR/NAILS, NO DRYNESS, NO LESION, LUMPS, NO RASH. NEUROLOGICAL/PSYCH: NO ANXIETY, NOT DEPRESSED, NO EMOTIONAL PROBLEM, NO HEADACHE, NO NUMBNESS, NO PRE-EXISTING DEFICIT, NO HISTORY OF SEIZURES, NO TREM ORS, NO WEAKNESS. HEMATOLOGIC/LYMPHATIC: NOT ANEMIC, NO HISTORY OF BLOOD CLOTS, NO APPARENT BLEEDING, NO BRUISING, GLANDS NOT SWOLLEN. ALL SYSTEMS NEGATIVE, EXCEPT NOTED. Physical Exam Physical Exam Dictation VITAL SIGNS: REVIEWED. GENERAL APPEARANCE: ALERT, ORIENTED X3, NO ACUTE DISTRESS, OBESE. HEAD AND FACE: NON-TRAUMATIC. EYES: PERRL, PINK CONJUNCTIVAS, EYELID NO TRAUMA, ANTERIOR CHAMBER CLEAR. EARS: PINNAS INTACT AND NO SIGNS OF TRAUMA OR ERYTHEMA. EAR CANALS CLEAR AND NO DISCHARGE. TMS NO ERYTHEMA. NOSE: NO DISCHARGE, NO BLEEDING. OROPHARYNX: MOUTH NORMAL, TEETH NO CARIES, TONGUE PINK. PHARYNX CLEAR, NO ERYTHEMA. TONSILS NO EXUDATES, NO ABSCESSES NOTED. MUCOUS MEMBRANE MOIST. NECK: SUPPLE, NON-TENDER, NO THYROMEGALY, NO MASSES, NO JVD, NO BRUITS. BREAST: DEFERRED. CHEST: NO TENDERNESS, NO CREPITUS, NO PARADOXICAL MOVEMENT, NO RETRACTIONS. LUNGS: CLEAR, WELL-VENTILATED, SYMMETRIC, NO RALES, NO WHEEZING, NO RHONCHI, NO STRIDOR, GOOD BREATH SOUNDS BILATERALLY. HEART: REGULAR RATE, REGULAR RHYTHM, NO MURMUR, NO GALLOPS. VASCULAR: NO PERIPHERAL EDEMA. ABDOMEN: SOFT, POSITIVE BOWEL SOUNDS, NONDISTENDED, NO GUARDING, NONTENDER, NO REBOUND, NO MASSES NO HEPATOMEGALY, NO SPLENOMEGALY, NO COTA'S SIGN, NO HERNIAS. RECTAL: DEFERRED. GENITAL: DEFERRED. NEUROLOGICAL: NORMAL SPEECH, GROSS MOTOR FUNCTION INTACT, GROSS SENSORY F UNCTION INTACT. MUSCULOSKELETAL: NECK NONTENDER, FULL RANGE OF MOTION, BACK NONTENDER, FULL RANGE OF MOTION. EXTREMITIES: NONTENDER, FULL RANGE OF MOTION. SKIN: COLOR PINK, DRY, NO TURGOR, NO RASH, NO LACERATIONS, NO ABRASIONS, NO CONTUSIONS. LYMPHATICS: DEFERRED. Results Laboratory and Microbiology Lab and Micro Result Laboratory Tests Test 02/13/25 13:54 02/13/25 14:52 Urine Color LIGHT-YELLOW (YELLOW) Urine Appearance CLEAR (CLEAR) Urine pH 5.0 (5.0-8.0) Urine Specific [place] 1.019 (1.001-1.031) Urine Protein NEGATIVE mg/dL (NEGATIVE) Urine Glucose (UA) NEGATIVE mg/dL (NEGATIVE) Urine Ketones NEGATIVE mg/dL (NEGATIVE) Urine Occult Blood SMALL (NEGATIVE) H Urine Nitrate NEGATIVE (NEGATIVE) Urine Bilirubin NEGATIVE mg/dL (NEGATIVE) Urine Urobilinogen 0.2 mg/dL (0.2-1.0) Urine Leukocyte Esterase 75 Lori/uL (NEGATIVE) H Urine RBC 2-5 /HPF (0-1) H Urine WBC 2-5 /HPF (0-1) H Urine Squamous Epithelial Cells FEW /HPF (0-2) Urine Bacteria RARE /HPF (None Seen) White Blood Count 8.6 K/uL (4.8-10.8) Red Blood Count 4.90 MIL/uL (4.00-5.50) Hemoglobin 14.1 g/dL (12.0-16.0) Hematocrit 45.5 % (36-48) Mean Corpuscular Volume 92.9 fL (79-99) Mean Corpuscular Hemoglobin 28.8 pg (27.0-33.0) Mean Corpuscular Hemoglobin Concent 31.0 g/dL (32.0-36.0) L Red Cell Distribution Width 12.8 % (11.0-15.5) Platelet Count 226 K/uL (130-400) Mean Platelet Volume 10.4 fL (7.5-10.5) Immature Granulocyte % (Auto) 0.3 % (0-1) Neutrophils (%) (Auto) 56.4 % (40.0-77.0) Lymphocytes (%) (Auto) 31.9 % (21.0-51.0) Monocytes (%) (Auto) 8.6 % (3.0-13.0) Eosinophils (%) (Auto) 2.1 % (0.0-8.0) Basophils (%) (Auto) 0.7 % (0.0-5.0) Neutrophils # (Auto) 4.9 K/uL (1.8-7.7) Lymphocytes # (Auto) 2.8 K/uL (1.0-4.8) Monocytes # (Auto) 0.7 K/uL (0.1-1.0) Eosinophils # (Auto) 0.18 K/uL (0.00-0.70) Basophils # (Auto) 0.06 K/uL (0.00-0.20) Absolute Immature Granulocyte (auto 0.03 K/uL (0-1) Nucleated Red Blood Cells 0.0 % (0.0-0.19) Red Blood Cell Morphology See comments Sodium Level 139 mmol/L (136-145) Potassium Level 4.1 mmol/L (3.5-5.1) Chloride Level 102 mmol/L (101-111) Carbon Dioxide Level 28 mmol/L (21-32) Blood Urea Nitrogen 17 mg/dL (7-18) Creatinine 0.9 mg/dL (0.5-1.0) Glomerular Filtration Rate Calc 72 mL/min (>90) Random Glucose 92 mg/dL (70-105) Total Calcium 10.1 mg/dL (8.5-10.1) Labs Reviewed?: Yes EKG/XRAY/US/CT/MRI Ultrasound Comment [place] [address] [place] [id number] IMAGING REPORT Signed PATIENT: CESARIO HUBBARD MR#: [id number] : 1960 SEX: F AGE: 64 LOCATION: [facility] ORDER 13 STATUS: [facility] REPORT#: [id number] SERVICE [id number] REASON: LEFT LOWER ABD SWELLING ORDERING PHYSICIAN: JOSE ROBBINS MD PROCEDURE: ABD WALL - US ABD LIMITED/ABD WALL US ABD LIMITED/ABD WALL REASON: LEFT LOWER ABD SWELLING. COMPARISON: None TECHNIQUE: Left lower abdominal wall ultrasound study was performed. FINDINGS: In the region of interest in the left lower anterior abdominal wall, there is cystic focus measuring 8 x 6 x 8 mm with peripheral flow may be related to a small subcutaneous abscess. IMPRESSION: In the region of interest in the left lower anterior abdominal wall, there is cystic focus measuring 8 x 6 x 8 mm with peripheral flow may be related to a small subcutaneous abscess. DICTATED BY: ALBERT ESCUDERO MD DATE: 02/13/25 151 ELECTRONICALLY SIGNED BY: ALBERT ESCUDERO MD DATE: 02/13/25 152 MDM MDM: DIFFERENTIAL DIAGNOSIS: SUBCUTANEOUS ABSCESS, UTI, CELLULITIS, RATIONALE: TESTS CONSIDERED AND ORDERED SECONDARY TO SHARED DECISION MAKING INCLUDE: PREVIOUS OUTSIDE RECORDS REVIEWED: OLD ER VISITS. RISK OF COMPLICATION AND/OR MORBIDITY OR MORTALITY OF PATIENT MANAGEMENT: NONE MEDICATIONS-PER MEDICATION RECONCILIATION NEED FOR HOSPITALIZATION: PATIENT DOES NOT MEET CRITERIA FOR HOSPITALIZATION. PATIENT IS A 64-YEAR-OLD FEMALE COMING IN TO BE EVALUATED FOR LOWER ABDOMINAL ABSCESS POSSIBLY. ULTRASOUND CONFIRMED A SMALL 8 MM ABSCESS SUBCUTANEOUSLY. PATIENT RECEIVED ANTIBIOTICS WILL BE PRESCRIBED CONTINUING TREATMENT FOR SUBCUTANEOUS ABSCESS WELL A UTI. I DID ADVISED PATIENT APPROPRIATE FOLLOW UP PCP AND/OR SURGEON FOR ONGOING EVALUATION AND MANAGEMENT. ED Course Orders Procedure Category Date Status Time Cbc With Differential LAB 02/13/25 Complete 14:13 Basic Metabolic Panel LAB 02/13/25 Complete 14:13 Urinalysis LAB 02/13/25 Complete W/Microscopic 14:13 Us Abd Limited/Abd US 02/13/25 Resulted Wall 14:13 Culture Urine LESVIA 02/13/25 In Process 14:28 Ketorolac PHA 02/13/25 Complete Tromethamine 30mg/Ml 16:00 Current Medications Medications (Trade) Dose Ordered Sig/Nancy Route PRN Reason Start Time Stop Time Status Last Admin Dose Admin Ketorolac Tromethamine (toRADol) 30 mg ONCE ONCE IM 02/13/25 16:00 02/13/25 16:01 DC 02/13/25 15:44 Vital Signs Date Time Temp Pulse Resp B/P (MAP) Pulse Ox O2 Delivery O2 Flow Rate FiO2 02/13/25 15:00 98.1 71 18 144/79 99 Room Air* 0 21 02/13/25 14:20 71 18 140/88 98 Room Air* 0 21 02/13/25 13:42 98.1 82 16 158/96 99 Room Air 0 DX & DISP Disposition: Discharge Departure Impression: Primary Impression: Subcutaneous abscess Additional Impression: UTI (urinary tract infection) Condition: Stable Scripts Cephalexin Monohydrate (Keflex) 500 Mg Cap 1 CAP PO TID for 10 Days, #30 CAP 0 Refills Prov: JOSE ROBBINS MD 02/13/25 Additional Instructions: FOLLOW-UP WITH PRIMARY CARE PROVIDER IN 1 TO 2 DAYS. TAKE MEDICATIONS DIRECTED HERE IN THE EMERGENCY ROOM. OKAY TO CONTINUE HOME MEDICATIONS UNLESS OTHERWISE DISCUSSED DURING YOUR VISIT IN THE EMERGENCY ROOM TODAY. RETURN TO YOUR NEAREST EMERGENCY ROOM IF SYMPTOMS WORSEN OR IF THERE IS NO IMPROVEMENT. CALL 911 IF YOU NEED IMMEDIATE ASSISTANCE. TAKE TYLENOL EYVM-[id number]-[id number] NEEDED AND IF NO CONTRAINDICATIONS ARE PRESENT. INCREASE ORAL HYDRATION. A WOUND CULTURE OR URINE CULTURE WAS ORDERED HERE IN THE EMERGENCY ROOM DEPARTMENT PLEASE FOLLOW-UP WITH PRIMARY CARE PROVIDER AND ADVISE THEM TO GET REPORTS FROM OUR FACILITY. IF YOU HAD ANY DANIEL WRAP/SPLINTS THAT WERE APPLIED HERE, PLEASE DO NOT REMOVE THEM UNTIL YOU SEE YOUR PRIMARY CARE OR SPECIALTY. REFERRALS: Referrals: ONEIDA DENG MD (PCP) ALMITA ROJAS DO Time of Disposition: 16:31 JOSE ROBBINS MD Feb 13, 2025 15:27
[2025-02-13] MEDS: ketOROlac 30MG VIAL (30MG/ML) IM ONE (15:44)
[2025-02-13] MEDS ORDERED: CEPH500B PO (16:32)
[2025-02-13] MEDS: traMADol HCL 50 MG TABLET PO ONE (16:37)
[2025-02-13 16:41] VITALS: BP 136/71; PULSE 71; RESP 18; TEMP 98.1; O2SAT 99
== END 2025-02-13 16:42 | disposition home or self-care (01) ==
LOC: EDH 13:33
DX: L02.211 Cutaneous abscess of abdominal wall (principal); N39.0 Urinary tract infection, site not specified; E03.9 Hypothyroidism, unspecified; I10 Essential (primary) hypertension; Z79.899 Other long term (current) drug therapy; Z90.49 Acquired absence of other specified parts of digestive tract; Z90.710 Acquired absence of both cervix and uterus
CPT/HCPCS: 99285; 76705; 80048; 85025; 87086; 81001; 36415; 96372; J1885

== ENCOUNTER 2025-02-19 15:07 | Emergency (ER) | payer OTHER ==
[~2025-02-19] VITALS: Ht 160 cm; Wt 67.1 kg
[~2025-02-19 15:07] MED LIST changes: +CEPH500B PO
--- NOTE | 2025-02-19 15:22 | ERN ---
ED Note History of Present Illness Stated Complaint: ABSCESS Chief Complaint: Abscess Time Seen by MD: 15:11 Dictation: PATIENT IS A 64-YEAR-OLD FEMALE RETURNING TO THE EMERGENCY ROOM TODAY WITH COMPLAINTS OF INCREASED PAIN TO THE LEFT INGUINAL AREA. SHE HAS HAD IT FOR 710 DAYS [place] [facility] [place] IN THE EMERGENCY ROOM AND DIAGNOSED WITH A 8 CM POSSIBLE ABSCESS VERSUS CYST TO THE LEFT INGUINAL AREA. SHE WAS REFERRED TO DR. ROJAS, GENERAL SURGERY HOWEVER SHE SAID THE DOCTOR TOLD ME NOT TO CALL UNTIL AFTER I WAS FINISHED WITH THE ANTIBIOTICS SO AFTER SEVEN DAYS I CAME BACK TO THE EMERGENCY ROOM BECAUSE IT IS STILL THERE. NO FEVER NO CHILLS NO NAUSEA VOMITING. STATES HER PRIMARY CARE DOCTORS DR. DENG, SHE HAS NOT SEEN HIM EITHER FOR MANAGEMENT. Allergies: Coded Allergies: No Known Allergies (Verified Allergy, Unknown, 07/07/17) Home Meds Active Scripts Cephalexin Monohydrate (Keflex) 500 Mg Cap, 1 CAP PO TID for 10 Days, #30 CAP 0 Refills Prov:JOSE ROBBINS MD 02/13/25 Reported Medications Levothyroxine Sodium (Synthroid 100 Mcg Tab) 100 Mcg Tablet, 100 MCG PO DAILYBKFST, TAB 08/04/22 Metoprolol Succinate (Metoprolol Succinate) 50 Mg Tab.er.24h, 50 MG PO DAILY, TAB 08/09/21 Alprazolam (Alprazolam) 0.5 Mg Tablet, 0.5 MG PO TID PRN for ANXIETY, TAB 08/09/21 Past Medical History Past Medical History: Anxiety, Hypertension, Hypothyroid Additional Past Medical Hx: C DIFF, E COLI Surgical History: Other, Surgical History Other: BACK SX History: Not Applicable RN Note Reviewed/Agreed w/PFSH: Yes Review of System Dictation CONSTITUTIONAL: NEGATIVE EXCEPT FOR HPI HEAD/FACE: NEGATIVE EXCEPT FOR HPI EENT: NEGATIVE EXCEPT FOR HPI RESPIRATORY: NEGATIVE EXCEPT FOR HPI GASTROINTESTINAL/ABDOMINAL: NEGATIVE EXCEPT FOR HPI GENITOURINARY: NEGATIVE EXCEPT FOR HPI MUSCULOSKELETAL: NEGATIVE EXCEPT FOR HPI INTEGUMENTARY: NEGATIVE EXCEPT FOR HPI LEFT INGUINAL SWELLING TENDERNESS NEUROLOGICAL/PSYCH: NEGATIVE EXCEPT FOR HPI HEMATOLOGIC/LYMPHATIC: NEGATIVE EXCEPT FOR HPI ALL SYSTEMS NEGATIVE, EXCEPT NOTED ABOVE. 13 POINT REVIEW OF SYSTEMS ASSESSED AND ALL NEGATIVE EXCEPT FOR ABOVE. Initial Vital Sign VS Vital Signs Date Time Temp Pulse Resp B/P (MAP) Pulse Ox O2 Delivery O2 Flow Rate FiO2 02/19/25 15:09 98.1 98 18 188/100 97 Room Air 0 Physical Exam Dictation VITAL SIGNS REVIEWED GENERAL APPEARANCE: ALERT, ORIENTED X 3, MILD ACUTE DISTRESS, WELL DEVELOPED, NOURISHED. HEAD AND FACE: NON-TRAUMATIC. EYES: PERRL, PINK CONJUNCTIVAS, EYELID NO TRAUMA, ANTERIOR CHAMBER WITH ARCUS SE NILIS. EARS: PINNAS INTACT AND NO SIGNS OF TRAUMA OR ERYTHEMA EAR CANALS CLEAR AND NO DISCHARGE TM NO ERYTHEMA NOSE: NO DISCHARGE, NO BLEEDING. OROPHARYNX: MOUTH NORMAL, TONGUE PINK, PHARYNX CLEAR,NO ERYTHEMA, TONSILS NO EXUDATES, NO ABSCESSES NOTED, MUCOUS MEMBRANE MOIST NECK: SUPPLE, NON-TENDER, NO THYROMEGALY, NO MASSES, NO JVD, NO BRUITS BREAST:DEFERRED CHEST:NO TENDERNESS, NO CREPITUS, NO PARADOXICAL MOVEMENT, NO RETRACTIONS LUNGS:CLEAR, WELL-VENTILATED, SYMMETRIC, NO RALES, NO WHEEZING, NO RHONCHI, NO STRIDOR, GOOD BREATH SOUNDS BILATERALLY HEART: REGULAR RATE, REGULAR RHYTHM, NO MURMUR, NO GALLOPS VASCULAR: NO PERIPHERAL EDEMA, ABDOMEN: SOFT, POSITIVE BOWEL SOUNDS, NONDISTENDED, NO GUARDING, NONTENDER, NO REBOUND, NO MASSES NO HEPATOMEGALY, NO SPLENOMEGALY, NO COTA'S SIGN, NO HERNIAS. RECTAL: DEFERRED GENITAL: DEFERRED NEUROLOGICAL: NORMAL SPEECH, MOTOR FUNCTION INTACT, SENSORY FUNCTION INTACT MUSCULOSKELETAL: NECK NONTENDER, FULL RANGE OF MOTION, BACK NONTENDER, FULL RANGE OF MOTION, EXTREMITIES: NONTENDER, FULL RANGE OF MOTION SKIN: COLOR PINK, MILD TENDERNESS APPROXIMATE 3 X 4 CM TO BELT LINE LEFT INGUINAL AREA. THERE WAS NO DRAINAGE NO FLUCTUANCE. PATIENT DOES SHAVE LYMPHATIC: DEFERRED Results (Laboratory/Radiology) Laboratory/Radiology Laboratory Tests Test 02/19/25 15:38 White Blood Count 7.9 K/uL (4.8-10.8) Red Blood Count 4.44 MIL/uL (4.00-5.50) Hemoglobin 12.9 g/dL (12.0-16.0) Hematocrit 40.1 % (36-48) Mean Corpuscular Volume 90.3 fL (79-99) Mean Corpuscular Hemoglobin 29.1 pg (27.0-33.0) Mean Corpuscular Hemoglobin Concent 32.2 g/dL (32.0-36.0) Red Cell Distribution Width 12.8 % (11.0-15.5) Platelet Count 223 K/uL (130-400) Mean Platelet Volume 10.5 fL (7.5-10.5) Immature Granulocyte % (Auto) 0.4 % (0-1) Neutrophils (%) (Auto) 51.7 % (40.0-77.0) Lymphocytes (%) (Auto) 35.1 % (21.0-51.0) Monocytes (%) (Auto) 10.5 % (3.0-13.0) Eosinophils (%) (Auto) 1.8 % (0.0-8.0) Basophils (%) (Auto) 0.5 % (0.0-5.0) Neutrophils # (Auto) 4.1 K/uL (1.8-7.7) Lymphocytes # (Auto) 2.8 K/uL (1.0-4.8) Monocytes # (Auto) 0.8 K/uL (0.1-1.0) Eosinophils # (Auto) 0.14 K/uL (0.00-0.70) Basophils # (Auto) 0.04 K/uL (0.00-0.20) Absolute Immature Granulocyte (auto 0.03 K/uL (0-1) Nucleated Red Blood Cells 0.0 % (0.0-0.19) Sodium Level 140 mmol/L (136-145) Potassium Level 3.6 mmol/L (3.5-5.1) Chloride Level 104 mmol/L (101-111) Carbon Dioxide Level 25 mmol/L (21-32) Blood Urea Nitrogen 11 mg/dL (7-18) Creatinine 0.8 mg/dL (0.5-1.0) Glomerular Filtration Rate Calc 83 mL/min (>90) Random Glucose 125 mg/dL (70-105) H Total Calcium 9.2 mg/dL (8.5-10.1) Labs Reviewed?: Yes ED Course ED Course Orders Procedure Category Date Status Time Acetaminophen With PHA 02/19/25 Complete Codeine (Tylenol-Code 15:30 Cbc With Differential LAB 02/19/25 Complete 15:19 Basic Metabolic Panel LAB 02/19/25 Complete 15:19 Urinalysis Profile LAB 02/19/25 Logged 17:14 Current Medications Medications (Trade) Dose Ordered Sig/Nancy Route PRN Reason Start Time Stop Time Status Last Admin Dose Admin Acetaminophen/ Codeine Phosphate (TYLenol-coDEINE TAB) 2 tab ONCE ONCE PO 02/19/25 15:30 02/19/25 15:31 DC 02/19/25 15:59 Vital Signs Date Time Temp Pulse Resp B/P (MAP) Pulse Ox O2 Delivery O2 Flow Rate FiO2 02/19/25 15:09 98.1 98 18 188/100 97 Room Air 0 1720/SPOKE WITH PATIENT AT LENGTH REGARDING LABS AND FOLLOW UP WITH DR. ROJAS, GENERAL SURGERY. SHE HAS THREE MORE DAYS WORTH OF ANTIBIOTICS FROM HER LAST ER VISIT. Medical Decision Making MDM MEDICAL DECISION-MAKING BASIC LABS AND PAIN MANAGEMENT FOR PREVIOUSLY DIAGNOSED ABSCESS LABS UNREMARKABLE NO REPEAT IMAGING WAS DONE PATIENT WILL BE GIVEN PAIN MANAGEMENT, TOLD TO CONTINUE HER ANTIBIOTICS FROM HER LAST ER VISIT CALL DR. ROJAS, GENERAL SURGERY FOR MANAGEMENT NEXT 1-2 DAYS. DX & DISP Disposition: Discharge Departure Impression: Primary Impression: Subcutaneous abscess Condition: Stable Scripts Acetaminophen with Codeine (Acetaminophen-Cod #3 Tablet) 300 Mg-30 Mg Tablet 1 TAB PO Q4H PRN for MODERATE TO SEVERE, #15 TAB 0 Refills Prov: MANUEL DIXON NP 02/19/25 Additional Instructions: Follow-up with primary care provider in 1 to 2 days. Take medications as directed here in the emergency room. Okay to continue home medications unless otherwise discussed during your visit in the emergency room today. Return to your nearest emergency room if symptoms worsen or if there is no improvement. Call 911 if you need immediate assistance. Take Tylenol or Motrin [id number] as needed and if no contraindications are present. Increase oral hydration. A wound culture or urine culture was ordered here in the emergency room department please follow-up with primary care provider and advise them to get repeat ports from our facility. If you had any Douglas wrap/splints that were applied here, please do not remove them until you see your primary care or specialty. Continue antibiotics from your last ER visit. Warm compresses to pain three to 4 times a day. Call Dr. Rojas for appointment tomorrow Referrals: ONEIDA DENG MD (PCP) ALMITA ROJAS DO Time of Disposition: 17:21 I have reviewed the case, and I agree with, Diagnosis and Plan MANUEL DIXON NP Feb 19, 2025 15:22
[2025-02-19 15:46] LABS: BASOPHILS # (AUTO) 0.04 K/uL (0.00-0.20); BASOPHILS % (AUTO) 0.5 % (0.0-5.0); EOSINOPHILS # (AUTO) 0.14 K/uL (0.00-0.70); EOSINOPHILS % (AUTO) 1.8 % (0.0-8.0); HEMATOCRIT 40.1 % (36-48); IMMATURE GRANULOCYTE ABSOLUTE 0.03 K/uL (0-1); LYMPHOCYTES # (AUTO) 2.8 K/uL (1.0-4.8); LYMPHOCYTES % (AUTO) 35.1 % (21.0-51.0); MEAN CORPUSCULAR HEMOGLOBIN 29.1 pg (27.0-33.0); MEAN CORPUSCULAR HGB CONC 32.2 g/dL (32.0-36.0); MEAN CORPUSCULAR VOLUME 90.3 fL (79-99); MONOCYTES # (AUTO) 0.8 K/uL (0.1-1.0); MONOCYTES % (AUTO) 10.5 % (3.0-13.0); NEUTROPHILS # (AUTO) 4.1 K/uL (1.8-7.7); NEUTROPHILS % (AUTO) 51.7 % (40.0-77.0); PLATELET COUNT (AUTO) 223 K/uL (130-400); RED BLOOD CELL COUNT(AUTO) 4.44 MIL/uL (4.00-5.50); RED CELL DISTRIBUTION WIDTH 12.8 % (11.0-15.5); WHITE BLOOD COUNT (AUTO) 7.9 K/uL (4.8-10.8)
[2025-02-19 15:55] LABS: CREATININE 0.8 mg/dL (0.5-1.0); POTASSIUM 3.6 mmol/L (3.5-5.1)
[2025-02-19] MEDS: acetaMINOPHEN WITH coDEINE 1 TAB TAB PO ONE (15:59)
[2025-02-19] MEDS ORDERED: ACET-2079 PO (17:24)
[2025-02-19 17:33] VITALS: BP 161/98; PULSE 88; RESP 18; TEMP 98.1; O2SAT 97
[2025-02-19 18:18] LABS: APPEARANCE,URINE CLEAR (CLEAR); BILIRUBIN,URINE NEGATIVE (NEGATIVE); COLOR,URINE LIGHT-YELLOW (YELLOW); GLUCOSE, URINE (UA) NEGATIVE (NEGATIVE); KETONES,URINE NEGATIVE (NEGATIVE); LEUKOCYTE ESTERASE ,URINE 500 Leu/uL (NEGATIVE); NITRATE,URINE NEGATIVE (NEGATIVE); OCCULT BLOOD,URINE SMALL (NEGATIVE); PH,URINE 5.5 (5.0-8.0); PROTEIN,URINE NEGATIVE (NEGATIVE); UROBILINOGEN,URINE 0.2 mg/dL (0.2-1.0)
[2025-02-19 18:19] LABS: ADD UA MICROSCOPIC YES
[2025-02-19 18:22] LABS: BACTERIA,URINE RARE /HPF (None Seen); MUCUS,URINE RARE LPF (None Seen); SQUAMOUS EPITHELIAL CELL,UR FEW /HPF (0-2); WBC,URINE 26-50 /HPF (0-1)
== END 2025-02-19 17:38 | disposition home or self-care (01) ==
LOC: EDH 15:07
DX: L02.211 Cutaneous abscess of abdominal wall (principal); E03.9 Hypothyroidism, unspecified; F41.9 Anxiety disorder, unspecified; I10 Essential (primary) hypertension; Z79.899 Other long term (current) drug therapy
CPT/HCPCS: 36415; 80048; 81001; 85025; 87086; 87186; 99283

== ENCOUNTER 2025-03-07 11:01 | Day surgery (SDC) | payer OTHER ==
[2025-03-03 12:24] LABS: IMMATURE GRANULOCYTE ABSOLUTE 0.03 K/uL (0-1); NUCLEATED RED BLOOD CELLS 0.0 % (0.0-0.19); PLATELET COUNT (AUTO) 278 K/uL (130-400); RED BLOOD CELL COUNT(AUTO) 4.91 MIL/uL (4.00-5.50); RED CELL DISTRIBUTION WIDTH 13.2 % (11.0-15.5); WHITE BLOOD COUNT (AUTO) 8.5 K/uL (4.8-10.8)
[2025-03-03 12:32] VITALS: BP 146/82; PULSE 97; RESP 18; TEMP 97.7
[2025-03-07] VITALS (14 sets, daily range): BP systolic 122–151; BP diastolic 77–86; PULSE 66–89; RESP 14–18; TEMP 97–206.6
[~2025-03-07] VITALS: Ht 160 cm; Wt 72.4 kg
[~2025-03-07 11:01] MED LIST changes: -CEPH500B PO; -LEVO100T4 PO; +LEVO125C5 PO
[2025-03-07] MEDS: LACTATED RINGERS 1000ML 1,000 ML IV ONE (12:12)
[2025-03-07 12:13] LABS: CREATININE 0.7 mg/dL (0.5-1.0); GLOMERULAR FILTR. RATE CALC 97.0 mL/min (>90); GLUCOSE,RANDOM 91.0 mg/dL (70-105); SODIUM SERUM 141.0 mmol/L (136-145); UREA NITROGEN, BLOOD 16.0 mg/dL (7-18)
[2025-03-07] MEDS ORDERED: SUCCINYLCHOLINE CHLORIDE 20 MG/ML 10 ML VIAL ONE (14:39)
[2025-03-07] MEDS ORDERED: LIDOCAINE PF 100MG/5ML (2%) SYRINGE 5ML ONE (14:39)
[2025-03-07] MEDS ORDERED: GLYCOPYRROLATE 0.2 MG/ML 5 ML VIAL ONE (14:40)
[2025-03-07] MEDS ORDERED: NEOSTIGMINE METHYLSULFATE 1MG/ML IV ONE (14:40)
[2025-03-07] MEDS ORDERED: MIDAZOLAM HCL 1 MG/ML 2ML VIAL ONE (14:41)
[2025-03-07] MEDS: LIDOCAINE HCL 1% 20 ML VIAL ONE (15:09)
[2025-03-07] MEDS ORDERED: SUGAMMADEX SODIUM 200 MG/2 ML VIAL IV ONE (15:34)
--- NOTE | 2025-03-07 16:04 | OP ---
Operative Note: DATE OF PROCEDURE: 03/07/25 SURGEON: ALMITA ROJAS DO ARTISTS' MODEL: None ANESTHESIA: General ANESTHESIOLOGIST/PUMP OPERATOR: MKIEL Reid PREOPERATIVE DIAGNOSIS: Suture granuloma of a Pfannenstiel incision POSTOPERATIVE DIAGNOSIS: Suture granuloma Pfannenstiel incision SYNOPSIS: None PROCEDURE: Excision of suture granuloma ESTIMATED BLOOD LOSS: 30 cc INDICATIONS: This is a 64-year-old female with history of multiple Pfannenstiel incisions for and abdominal exploration. After her last surgery about three years ago she noticed discomfort in the left lateral margin of her scar. Over the last three months she has developed a draining sinus. She has had several courses of antibiotics in the sinus has not healed. On physical exam the areas erythematous without induration. No purulent drainage. I recommended excision of what was most likely a suture granuloma. I discussed the procedure in detail with the patient. All questions were answered. The patient expressed understanding and agreement with the plan. DESCRIPTION OF PROCEDURE: The patient was placed on the operating table in the supine position. After adequate sedation the patient was intubated by anesthesia. Perioperative antibiotics were given. The patient's abdomen was prepped and draped in usual sterile fashion. A time-out was performed. Local anesthetic was infiltrated into the skin and soft tissue of the proposed excision. The sinus tract was explored with a lacrimal duct below probe. The tract appeared to be superficial and there appeared to be a foreign body at the base of the tract. Using a 15 blade scalpel a 6.5 cm elliptical skin incision was made encircling the sinus tract. The skin and subcutaneous fat was excised down to the level of the muscular fascia where three Ethibond sutures were encountered. These appeared to coincide with the base of the sinus tract. One of these was excised along with the specimen which was the likely source of the granuloma. Two further sutures were removed. The specimen was handed off for routine pathology. Hemostasis was achieved using electrocautery. The wound was copiously irrigated with sterile saline. The deep tissues were approximated with multiple interrupted sutures of 2-0 Vicryl. The dermal layer was approximated using multiple interrupted sutures of 3-0 Vicryl. The skin was approximated using 4-0 Monocryl in a subcuticular fashion. The wound was dressed with Steri-Strips, gauze, and tape. The patient tolerated the procedure well. All instrument, needle, and sponge counts were correct at the end of the procedure. The patient was aroused from sedation, extubated, and transferred to the postanesthesia care unit in good condition. ALMITA ROJAS DO Mar 07, 2025 16:04
== END 2025-03-07 17:07 | disposition home or self-care (01) ==
LOC: DAH 11:01
PROVIDERS: ATTEND Student in an Organized Health Care Education/Training Program
DX: L72.8 Other follicular cysts of the skin and subcutaneous tissue (principal); L92.3 Foreign body granuloma of the skin and subcutaneous tissue; Z79.899 Other long term (current) drug therapy
CPT/HCPCS: 85025; 36415 ×2; 11406; 12031; 80048; 88304; A4600; A6260; A4663; J7120 ×2; J3010 ×2; J1100; J0330; J0665; J3490 ×2; J2003; J2250; J2704; J2405 ×2; J2710; J0690; A4930; A4215; A4223; A4222; A4221; A4450

== ENCOUNTER 2025-03-08 12:36 | Observation (INO) | payer OTHER ==
[~2025-03-08] VITALS: Ht 160 cm; Wt 68.9 kg
[2025-03-08 14:51] LABS: IMMATURE GRANULOCYTE ABSOLUTE 0.07 K/uL (0-1); NUCLEATED RED BLOOD CELLS 0.0 % (0.0-0.19); PLATELET COUNT (AUTO) 243 K/uL (130-400); RED BLOOD CELL COUNT(AUTO) 4.32 MIL/uL (4.00-5.50); RED CELL DISTRIBUTION WIDTH 12.8 % (11.0-15.5); WHITE BLOOD COUNT (AUTO) 16.1 K/uL (4.8-10.8)
[2025-03-08 15:00] LABS: CREATININE 0.9 mg/dL (0.5-1.0); GLOMERULAR FILTR. RATE CALC 72.0 mL/min (>90); GLUCOSE,RANDOM 110.0 mg/dL (70-105); SODIUM SERUM 140.0 mmol/L (136-145); UREA NITROGEN, BLOOD 16.0 mg/dL (7-18)
--- NOTE | 2025-03-08 16:30 | HMCIMG ---
EXAM: CT Abdomen and Pelvis Without IV contrast CLINICAL HISTORY: post surgicAL TECHNIQUE: Axial computed tomography images of the abdomen and pelvis without intravenous contrast. CONTRAST: No IV contrast. COMPARISON: None provided. FINDINGS: LUNG BASES: The lung bases appear clear. No pleural effusions are seen. LIVER: Low in density, consistent with fatty infiltration.. GALLBLADDER AND BILE DUCTS: Cholecystectomy. No biliary ductal dilatation is evident. PANCREAS: Unremarkable. SPLEEN: Unremarkable. ADRENAL GLANDS: Unremarkable. KIDNEYS, URETERS, AND BLADDER: The kidneys appear within normal limits. There is no hydronephrosis or hydroureter. No urinary calculi are seen. STOMACH AND BOWEL: Unremarkable appearance of the stomach and bowel. No evidence of bowel obstruction. No evidence suggesting enteritis or colitis. APPENDIX: No evidence of acute appendicitis on CT examination. PERITONEUM: No free fluid. No free air. LYMPH NODES: No lymphadenopathy is evident. REPRODUCTIVE: Unremarkable as visualized. VASCULATURE: No evidence of abdominal aortic aneurysm. Atherosclerotic calcifications in the aorta and its branches. BONES: No aggressive appearing osseous lesion. No acute osseous pathology evident. Status post posterior fusion of 3/L4/L5. SOFT TISSUES: Small amount of soft tissue air with adjacent stranding in the left lower quadrant anterior abdominal wall which is likely postsurgical in nature. No fluid collection or hematoma. IMPRESSION: Small amount of soft tissue air with adjacent stranding in the left lower quadrant anterior abdominal wall which is likely postsurgical in nature. No fluid collection or hematoma. No acute intra-abdominal or pelvic abnormality. Fatty liver. /Benson
--- NOTE | 2025-03-08 17:04 | ERN ---
General Chief Complaint: Abdominal Pain Stated Complaint: PAIN Time Seen by MD: 12:40 Source: patient History of Present Illness Initial Comments In his is a 64-year-old female coming in complaining lower abdominal discomfort and fever. Per patient's she just had a surgical procedure yesterday. No other current complaints. Allergies: Coded Allergies: No Known Allergies (Verified Allergy, Unknown, 07/07/17) Home Meds Reported Medications Levothyroxine Sodium (Levothyroxine) 125 Mcg Capsule, 125 MCG PO AM, CAP 03/03/25 Metoprolol Succinate (Metoprolol Succinate) 50 Mg Tab.er.24h, 50 MG PO DAILY, TAB 08/09/21 Alprazolam (Alprazolam) 0.5 Mg Tablet, 0.5 MG PO TID PRN for ANXIETY, TAB 08/09/21 Discontinued Reported Medications Levothyroxine Sodium (Synthroid 100 Mcg Tab) 100 Mcg Tablet, 100 MCG PO DAILYBKFST, TAB 08/04/22 Discontinued Scripts Acetaminophen with Codeine (Acetaminophen-Cod #3 Tablet) 300 Mg-30 Mg Tablet, 1 TAB PO Q4H PRN for MODERATE TO SEVERE, #15 TAB 0 Refills Prov:MANUEL DIXON NP 02/19/25 Cephalexin Monohydrate (Keflex) 500 Mg Cap, 1 CAP PO TID for 10 Days, #30 CAP 0 Refills Prov:JOSE ROBBINS MD 02/13/25 Past Medical History Past Medical History: Anxiety, Hypertension, Hypothyroid Medical History Other: C DIFF, E COLI Past Surgical History: Other, Surgical History Other: BACK SX Female( History) History: Not Applicable ROS Dictation CONSTITUTIONAL: No chills, no fever, no weakness, no diaphoresis, no malaise. HEAD/FACE: No signs of trauma. EENT: No eye pain, no blurred vision, no tearing, no double vision, no ear pain, no ear discharge, no nose pain, no nasal congestion, no throat pain, no throat swelling, no mouth pain. RESPIRATORY: No cough, no orthopnea, no SOB, no stridor, no wheezing. CARDIOVASCULAR: No chest pain, no edema, no palpitations, no syncope. GASTROINTESTINAL/ABDOMINAL: No abdominal pain, no constipation, no diarrhea, no nausea, no vomiting. GENITOURINARY: No abnormal discharge, no dysuria, no frequent urination, no hematuria. No complaints of pain in the genitals. MUSCULOSKELETAL: No back pain, no gout, no joint pain, no joint swelling, no muscle pain, no muscle stiffness, no neck pain. INTEGUMENTARY: No change in color, no change in hair/nails, no dryness, lesion, no lumps, no rash. NEUROLOGICAL/PSYCH: No anxiety, not depressed, no emotional problem, no headache, no numbness, no pre-existing deficit, no history of seizures, no tremors, no weakness. HEMATOLOGIC/LYMPHATIC: Not anemic, no history of blood clots, no apparent bleeding, no bruising, glands not swollen. All Systems Negative, Except as Noted. Physical Exam Physical Exam Dictation VITAL SIGNS: Reviewed. GENERAL APPEARANCE: Alert, oriented x3, no acute distress, obese. HEAD AND FACE: Non-traumatic. EYES: PERRL, pink conjunctivas, eyelid no trauma, anterior chamber clear. EARS: Pinnas intact and no signs of trauma or erythema. Ear canals clear and no discharge. TMs no erythema. NOSE: No discharge, no bleeding. OROPHARYNX: Mouth normal, teeth no caries, tongue pink. Pharynx clear, no erythema. Tonsils no exudates, no abscesses noted. Mucous membrane moist. NECK: Supple, non-tender, no thyromegaly, no masses, no JVD, no bruits. BREAST: Deferred. CHEST: No tenderness, no crepitus, no paradoxical movement, no retractions. LUNGS: Clear, well-ventilated, symmetric, no rales, no wheezing, no rhonchi, no stridor, good breath sounds bilaterally. HEART: Regular rate, regular rhythm, no murmur, no gallops. VASCULAR: No peripheral edema. ABDOMEN: Soft, positive bowel sounds, nondistended, no guarding, nontender, no rebound, no masses no hepatomegaly, no splenomegaly, no Alexander's sign, no hernias. RECTAL: Deferred. GENITAL: Deferred. NEUROLOGICAL: Normal speech, gross motor function intact, gross sensory function intact. MUSCULOSKELETAL: Neck nontender, full range of motion, back nontender, full range of motion. EXTREMITIES: Nontender, full range of motion. SKIN: Color pink, dry, no turgor, no rash, post surgical wound lower abdominal region no erythema no drainage LYMPHATICS: Deferred. Results Laboratory and Microbiology Lab and Micro Result Laboratory Tests Test 03/08/25 14:30 White Blood Count 16.1 K/uL (4.8-10.8) H Red Blood Count 4.32 MIL/uL (4.00-5.50) Hemoglobin 12.4 g/dL (12.0-16.0) Hematocrit 38.6 % (36-48) Mean Corpuscular Volume 89.4 fL (79-99) Mean Corpuscular Hemoglobin 28.7 pg (27.0-33.0) Mean Corpuscular Hemoglobin Concent 32.1 g/dL (32.0-36.0) Red Cell Distribution Width 12.8 % (11.0-15.5) Platelet Count 243 K/uL (130-400) Mean Platelet Volume 11.0 fL (7.5-10.5) H Immature Granulocyte % (Auto) 0.4 % (0-1) Neutrophils (%) (Auto) 72.2 % (40.0-77.0) Lymphocytes (%) (Auto) 17.4 % (21.0-51.0) L Monocytes (%) (Auto) 9.7 % (3.0-13.0) Eosinophils (%) (Auto) 0.1 % (0.0-8.0) Basophils (%) (Auto) 0.2 % (0.0-5.0) Neutrophils # (Auto) 11.6 K/uL (1.8-7.7) H Lymphocytes # (Auto) 2.8 K/uL (1.0-4.8) Monocytes # (Auto) 1.6 K/uL (0.1-1.0) H Eosinophils # (Auto) 0.01 K/uL (0.00-0.70) Basophils # (Auto) 0.03 K/uL (0.00-0.20) Absolute Immature Granulocyte (auto 0.07 K/uL (0-1) Nucleated Red Blood Cells 0.0 % (0.0-0.19) Sodium Level 140 mmol/L (136-145) Potassium Level 4.2 mmol/L (3.5-5.1) Chloride Level 104 mmol/L (101-111) Carbon Dioxide Level 29 mmol/L (21-32) Blood Urea Nitrogen 16 mg/dL (7-18) Creatinine 0.9 mg/dL (0.5-1.0) Glomerular Filtration Rate Calc 72 mL/min (>90) Random Glucose 110 mg/dL (70-105) H Total Calcium 9.4 mg/dL (8.5-10.1) EKG/XRAY/US/CT/MRI CT Scan Comment [address] [place] [address] IMAGING REPORT Signed PATIENT: CESARIO HUBBARD MR#: [id number] : 1960 SEX: F AGE: 64 LOCATION: [facility] ORDER [id number] STATUS: [facility] REPORT#: [id number] SERVICE 152 REASON: post surgicAL ORDERING PHYSICIAN: JOSE ROBBINS MD PROCEDURE: ABD PEL WO - CT ABDOMEN/PELVIS W/O CONTRAST EXAM: CT Abdomen and Pelvis Without IV contrast CLINICAL HISTORY: post surgicAL TECHNIQUE: Axial computed tomography images of the abdomen and pelvis without intravenous contrast. CONTRAST: No IV contrast. COMPARISON: None provided. FINDINGS: LUNG BASES: The lung bases appear clear. No pleural effusions are seen. LIVER: Low in density, consistent with fatty infiltration.. GALLBLADDER AND BILE DUCTS: Cholecystectomy. No biliary ductal dilatation is evident. PANCREAS: Unremarkable. SPLEEN: Unremarkable. ADRENAL GLANDS: Unremarkable. KIDNEYS, URETERS, AND BLADDER: The kidneys appear within normal limits. There is no hydronephrosis or hydroureter. No urinary calculi are seen. STOMACH AND BOWEL: Unremarkable appearance of the stomach and bowel. No evidence of bowel obstruction. No evidence suggesting enteritis or colitis. APPENDIX: No evidence of acute appendicitis on CT examination. PERITONEUM: No free fluid. No free air. LYMPH NODES: No lymphadenopathy is evident. REPRODUCTIVE: Unremarkable as visualized. VASCULATURE: No evidence of abdominal aortic aneurysm. Atherosclerotic calcifications in the aorta and its branches. BONES: No aggressive appearing osseous lesion. No acute osseous pathology evident. Status post posterior fusion of 3/L4/L5. SOFT TISSUES: Small amount of soft tissue air with adjacent stranding in the left lower quadrant anterior abdominal wall which is likely postsurgical in nature. No fluid collection or hematoma. IMPRESSION: Small amount of soft tissue air with adjacent stranding in the left lower quadrant anterior abdominal wall which is likely postsurgical in nature. No fluid collection or hematoma. No acute intra-abdominal or pelvic abnormality. Fatty liver. /[place] DICTATED BY: CHANA ISAAC MD DATE: 03/08/251727 ELECTRONICALLY SIGNED BY: CHANA ISAAC MD DATE: 03/08/251727 MDM MDM: Differential diagnosis: Fever, post surgical fever, post surgical cellulitis, Rationale: Tests considered and ordered secondary to shared decision making include: labs, ECG and radiology Previous outside records reviewed: Old ER visits. Risk of complication and/or morbidity or mortality of patient management: None Medications-Per medication reconciliation Need for hospitalization: Patient does meet criteria for hospitalization. Need for emergency major/minor surgery: No There are no social concerns with this patient. Prescription drug management Prescriptions will include symptomatic care Patient's prior external medical records from other ER visits were reviewed by me as indicated. Prior testing and results from previous visits were reviewed. Prior tests were taken into account with medical decision making and resource utilization, independent historian/historians were used to obtain complete medical history. I independently interpreted the test that were performed, results were reviewed by me and considered findings on radiology if ordered. Medical management and examination interpretation discussions were had by me with other qualified healthcare professionals as indicated for the patient's care. Patient will be admitted under the care of Dr. Amezquita for ongoing management postsurgical cellulitis. ED Course Orders Procedure Category Date Status Time Cbc With Differential LAB 03/08/25 Complete 12:41 Basic Metabolic Panel LAB 03/08/25 Complete 12:41 Ct Abdomen/Pelvis W/O CT 03/08/25 Resulted Contrast 15:26 Ketorolac PHA 03/08/25 In Process Tromethamine 30mg/Ml 17:00 Current Medications Medications (Trade) Dose Ordered Sig/Nancy Route PRN Reason Start Time Stop Time Status Last Admin Dose Admin Ketorolac Tromethamine (toRADol) 30 mg ONCE ONCE IM 03/08/25 17:00 03/08/25 17:01 Vital Signs Date Time Temp Pulse Resp B/P (MAP) Pulse Ox O2 Delivery O2 Flow Rate FiO2 03/08/25 12:40 98.1 91 16 161/91 99 Room Air DX & DISP Disposition: Inpatient Decision to Admit Time: 17:03 Departure Impression: Primary Impression: Postoperative cellulitis of surgical wound Condition: Stable Referrals: ONEIDA DENG MD (PCP) JOSE ROBBINS MD Mar 08, 2025 17:04
--- NOTE | 2025-03-08 18:20 | NUR ---
CALLED dR. ROJAS FOR ADMITTING ORDERS.( VIEW ORDERS)
--- NOTE | 2025-03-08 18:52 | NUR ---
MEDICATIONS REVIEWED. PENDING TO BE RECONSILED BY ADMITTING PHYSICIAN.
[2025-03-08 23:27] VITALS: BP 146/90; PULSE 74; RESP 19; TEMP 97.8
--- NOTE | 2025-03-08 23:35 | NUR ---
RECEIVED PATIENT FROM ER [facility] IS INTACT. PATIENT EXPRESSED PAIN 8/10 TO [facility], DR ROJAS HAS BEEN NOTIFIED.
[2025-03-08 23:50] VITALS: O2SAT 96
[2025-03-09] VITALS (7 sets, daily range): BP systolic 122–165; BP diastolic 76–111; PULSE 73–89; RESP 16–19; TEMP 97.5–98.2; O2SAT 95
[2025-03-09 07:34] LABS: NUCLEATED RED BLOOD CELLS 0.0 % (0.0-0.19); PLATELET COUNT (AUTO) 213.0 K/uL (130-400); RED BLOOD CELL COUNT(AUTO) 4.06 MIL/uL (4.00-5.50); RED CELL DISTRIBUTION WIDTH 13.1 % (11.0-15.5); WHITE BLOOD COUNT (AUTO) 9.4 K/uL (4.8-10.8)
[2025-03-09 07:45] LABS: ASPARTATE AMINOTRANSFERASE 17.0 U/L (10-37); CREATININE 0.7 mg/dL (0.5-1.0); GLOMERULAR FILTR. RATE CALC 97.0 mL/min (>90); GLUCOSE,RANDOM 94.0 mg/dL (70-105); SODIUM SERUM 141.0 mmol/L (136-145); TOTAL PROTEIN, SERUM 7.2 g/dL (6.0-8.3); UREA NITROGEN, BLOOD 19.0 mg/dL (7-18)
--- NOTE | 2025-03-09 10:01 | NUR ---
DCP: HOME Pt currently lives with sister Kimberlyn fernandez [place] [phone]. Pt does not report insecurities with food, skilled nursing, and/or utilities. Pt does not have any DME, home health, or providers. Pt stated that she can complete ADLs independently. PCP is Dr. Thomson and uses [facility] for any RX needs. At [place] pt will want to go back home and sister can assist with transportation. Addendum: 03/09/25 at 1005 by SALLY MCCONNELL SS Amended: Links added.
--- NOTE | 2025-03-09 13:41 | HP ---
Admitting physician: Dr. Wale Amezquita Reason for Admission: Postoperative concerns of pain and nausea History of present illness: This is a 64-year-old female known to our practice after undergoing excision of suture granuloma on March 07. Patient was discharged home. Due to concerns of nausea and some erythema patient presented to the hospital for evaluation of abdominal pain and concerns of infection. Initial imaging showing postoperative changes. WBCs on initial presentation 16.1 likely reactive from surgery but now 9.4. Incision clean and dry abdominal pain improving. No erythema to body at this time. Patient however with nausea Medical history: Surgical history: Recent surgery noted Review of systems: General: No Fever, No Chills, No Night Sweats, No Fatigue, No Malaise, No Appetite, No Other HEENT: No Head Aches, No Visual Changes, No Eye Pain, No Ear Pain, No Dysphasia, No Sinus Congestion, No Post Nasal Drip, No Sore Throat, No Other Pulmonary: No Dyspnea, No Cough, No Pleuritic Chest Pain, No Other Cardiovascular: No: Chest Pain, Palpitations, Orthopnea, Paroxysmal No Dyspnea, Edema, Lt Headedness, Other Gastrointestinal: Patient is nauseous Genitourinary: No Dysuria, No Frequency, No Incontinence, No Hematuria, No Retention, No Other Musculoskeletal: No: other, neck pain, shoulder pain, arm pain, back pain, hand pain, leg pain, foot pain Skin: No Urticaria, No Rash, No Other Neurological: No: Weakness, Numbness, Incoordination, Change in speech, Confusion, Seizures, Other Physical exam: General: Awake alert and oriented Heart: Regular rate and rhythm} Lungs: Clear to auscultation no distress Abdomen: [Soft, nontender, nondistended incision clean and dry with no abdominal pain reported today Assessment: This is a 64-year-old female status post excision of suture granuloma with breech presentation for concerns of nausea and abdominal discomfort Plan: Patient to be given p.o. Zofran for nausea management Dr. Thomson to be consulted for continued medical management Continue with current Pain management No immediate surgical intervention at this time Dr. Amezquita has been updated in patient's status and patient to remain overnight for observation OCTAVIANO ALICEA Jr. Mar 09, 2025 13:41
--- NOTE | 2025-03-09 22:15 | PN ---
PROGRESS NOTE PROGRESS NOTE DATE OF PROGRESS NOTE: 03/09/25 SUBJECTIVE: no new fever VITAL SIGNS Vital Signs Date Time Temp Pulse Resp B/P (MAP) Pulse Ox O2 Delivery O2 Flow Rate FiO2 03/09/25 21:26 97.5 76 16 126/78 95 Room Air 03/09/25 08:31 0 21 PHYSICAL EXAM: General: Awake alert and oriented Heart: Regular rate and rhythm} Lungs: Clear to auscultation no distress Abdomen: [Soft, nontender, nondistended incision clean and dry with no abdominal pain reported today LABORATORY: Laboratory Result(s) Test 03/09/25 07:27 03/09/25 15:48 White Blood Count 9.4 K/uL (4.8-10.8) Red Blood Count 4.06 MIL/uL (4.00-5.50) Hemoglobin 11.7 g/dL (12.0-16.0) Hematocrit 37.3 % (36-48) Mean Corpuscular Volume 91.9 fL (79-99) Mean Corpuscular Hemoglobin 28.8 pg (27.0-33.0) Mean Corpuscular Hemoglobin Concent 31.4 g/dL (32.0-36.0) Red Cell Distribution Width 13.1 % (11.0-15.5) Platelet Count 213 K/uL (130-400) Mean Platelet Volume 10.6 fL (7.5-10.5) Nucleated Red Blood Cells 0.0 % (0.0-0.19) Sodium Level 141 mmol/L (136-145) Potassium Level 4.2 mmol/L (3.5-5.1) Chloride Level 106 mmol/L (101-111) Carbon Dioxide Level 30 mmol/L (21-32) Blood Urea Nitrogen 19 mg/dL (7-18) Creatinine 0.7 mg/dL (0.5-1.0) Glomerular Filtration Rate Calc 97 mL/min (>90) Random Glucose 94 mg/dL (70-105) Total Calcium 8.7 mg/dL (8.5-10.1) Total Bilirubin 0.3 mg/dL (0.2-1.0) Aspartate Amino Transf (AST/SGOT) 17 U/L (10-37) Alanine Aminotransferase (ALT/SGPT) 28 U/L (12-78) Alkaline Phosphatase 45 U/L (50-136) Total Protein 7.2 g/dL (6.0-8.3) Albumin 3.4 g/dL (3.5-5.0) Whole Blood Glucose 292 MG/DL (70-110) INPATIENT MEDS: Current Medications Medications Dose Ordered Sig/Nancy Start Time Stop Time Status Last Admin Tramadol HCl 50 mg Q6H PRN 03/08/25 19:00 03/13/25 18:59 03/09/25 02:08 Acetaminophen 650 mg Q6H PRN 03/08/25 19:00 04/07/25 18:59 03/09/25 16:30 Cephalexin 500 mg Q12H 03/08/25 21:30 03/18/25 21:29 03/09/25 19:54 Ondansetron HCl 4 mg Q6H PRN 03/09/25 14:00 04/08/25 13:59 03/09/25 13:40 Alprazolam 0.5 mg TID PRN 03/09/25 16:30 04/08/25 16:29 Metoprolol Succinate 50 mg BID 03/09/25 16:30 04/08/25 16:29 03/09/25 19:54 Levothyroxine Sodium 112 mcg SYN 03/10/25 06:30 04/09/25 06:29 Levothyroxine Sodium 25 mcg SYN 03/10/25 06:30 04/09/25 06:29 PROBLEM LIST: (1) Subcutaneous abscess ICD Code: L02.91 - Cutaneous abscess, unspecified (2) Postoperative cellulitis of surgical wound ICD Code: T81.49XA - Infection following a procedure, other surgical site, initial encounter PLAN: iv antibioitc ONEIDA DENG MD Mar 09, 2025 22:15
[2025-03-10 00:15] VITALS: BP 116/78; PULSE 74; RESP 19; TEMP 98.4
[2025-03-10 04:27] VITALS: BP 116/76; PULSE 76; RESP 18; TEMP 98.2
[2025-03-10 08:00] VITALS: BP 137/84; PULSE 68; RESP 19; TEMP 98.1
--- NOTE | 2025-03-10 08:50 | NUR ---
DC NOTE DC INSTRUCTIONS AND FOLLOW UP GIVEN BY PM MONUMENT SETTER.REVIEWED DC INSTRUCTION, VERBALIZED UNDERSTANDING. NO PIV. PT IS WHEELED DOWNSTAIRS WITH JD EDWARDS CONSULTANT INTO VIA PRIVATE CAR. NO FURTHER COMMENTS OR CONCERNS AT THIS TIME.
--- NOTE | 2025-03-14 14:01 | DS ---
Discharge Summary DIAGNOSE(S): [Infected suture granuloma] HOSPITAL COURSE SUMMARY: [Patient improved with antibiotics switch to oral antibiotic with removal of suture] SHEAR OPERATOR HELPER(S): [] PROCEDURE(S)/TREATMENT(S): [None] PROBLEM(S): [] FOLLOW-UP TEST(S): [None] DISCHARGE INSTRUCTIONS: [Follow up on Keflex in 3-4 days] Home Meds Reported Medications Levothyroxine Sodium (Levothyroxine) 125 Mcg Capsule, 137 MCG PO AM, CAP 03/03/25 Metoprolol Succinate (Metoprolol Succinate) 50 Mg Tab.er.24h, 50 MG PO BID, TAB 08/09/21 Alprazolam (Alprazolam) 0.5 Mg Tablet, 0.5 MG PO TID PRN for ANXIETY, TAB 08/09/21 ONEIDA DENG MD Mar 14, 2025 14:01
== END 2025-03-10 08:50 | disposition home or self-care (01) ==
LOC: EDH 12:36 → EDHIP 20:10 → INTOOBSV 20:10 → 3AH 23:17
PROVIDERS: ADMIT Internal Medicine; ATTEND Internal Medicine
DX: L02.91 Cutaneous abscess, unspecified (principal); T81.49XA Infection following a procedure, other surgical site, initial encounter; E03.9 Hypothyroidism, unspecified; R11.0 Nausea; I10 Essential (primary) hypertension; K76.0 Fatty (change of) liver, not elsewhere classified; F41.9 Anxiety disorder, unspecified; Z98.890 Other specified postprocedural states; Z79.899 Other long term (current) drug therapy
CPT/HCPCS: 99285; 74176; 96374; 80048; 85025; 36415 ×2; 96372; 80053; 85027; 82948; J1885; J0696 ×2; J2405 ×2; Q0162; G0378

== ENCOUNTER 2025-05-17 08:50 | Observation (INO) | payer OTHER ==
[~2025-05-17] VITALS: Ht 160 cm; Wt 70.3 kg
[2025-05-17 10:21] LABS: NUCLEATED RED BLOOD CELLS 0.0 % (0.0-0.19); PLATELET COUNT (AUTO) 274.0 K/uL (130-400); RED BLOOD CELL COUNT(AUTO) 4.44 MIL/uL (4.00-5.50); RED CELL DISTRIBUTION WIDTH 14.4 % (11.0-15.5); WHITE BLOOD COUNT (AUTO) 9.2 K/uL (4.8-10.8)
[2025-05-17 10:29] LABS: CREATININE 0.7 mg/dL (0.5-1.0); GLOMERULAR FILTR. RATE CALC 97 mL/min (>90); GLUCOSE,RANDOM 97 mg/dL (70-105); SODIUM SERUM 137 mmol/L (136-145); UREA NITROGEN, BLOOD 18 mg/dL (7-18)
[2025-05-17 10:38] LABS: ERYTHROCYTE SEDIMENTATION RATE 39.0 MM/HR (0-30)
[2025-05-17 10:41] LABS: ASPARTATE AMINOTRANSFERASE 18 U/L (10-37); CREATINE KINASE, TOTAL 76 U/L (21-232); TOTAL PROTEIN, SERUM 7.6 g/dL (6.0-8.3)
--- NOTE | 2025-05-17 10:47 | NUR ---
PT PLACED NOW IN HALLWAY BED B.
--- NOTE | 2025-05-17 11:00 | NUR ---
PT REFUSING IV INSERTION. REQUESTING PICC LINE TO BE PLACED.
[2025-05-17] MEDS ORDERED: IOHEXOL-350 75 ML VIAL IV ONE (11:04)
--- NOTE | 2025-05-17 11:07 | NUR ---
SPOKE WITH AUGUSTINE FROM ICU TO GIVE REPORT. PER HER, TO JUST SEND THE PT UP TO ROOM.
--- NOTE | 2025-05-17 11:09 | EKG ---
[facility] Test Date: 2025-05-17 Test Time: 10:55:15 Pat Name: CESARIO HUBBARD Department: DIRECT Room: 425 Gender: F [employer]anner: [id number] : 1960 Requested By: ONEIDA DENG Order Number: [id number] Reading MD: Laurie Washington Measurements Intervals [place] Rate: 81 P: 41 AK: 134 QRS: 15 QRSD: 92 T: 15 QT: 363 QTc: 422 Interpretive Statements Sinus rhythm Compared to ECG 08/10/2021 07:58:15 No significant changes Electronically Signed On 05-19-2025 08:37:09 CDT by Laurie Washington Please click the below link to view image of tracing.
--- NOTE | 2025-05-17 11:10 | HMCIMG ---
EXAM: CR Chest, 2 View. CLINICAL HISTORY: SOB COMPARISON: None provided. FINDINGS: LUNGS: The lungs show no infiltrate or other acute finding. PLEURAL SPACES: No evidence of pleural effusion or pneumothorax. MEDIASTINUM: The cardiomediastinal silhouette is within normal limits. BONES: No aggressive appearing osseous lesion seen. IMPRESSION: No acute cardiopulmonary pathology is evident. /[place]
--- NOTE | 2025-05-17 11:12 | NUR ---
as per er nurse pt refusing iv placement, this nurse paged dr. ochoa at this time for further orders due to pt requesting to have picc line inserted instead. voicemail left for md , pending call back.
--- NOTE | 2025-05-17 11:26 | HMCIMG ---
EXAM: US Thyroid. CLINICAL HISTORY: Thyroid abnormality TECHNIQUE: Real-time ultrasound scan of the thyroid gland and soft tissues of the neck with image documentation. COMPARISON: None provided. FINDINGS: LEFT THYROID LOBE: Smaller in size ( 1.7 x 0.5 x 0.6 cm ) and appears heterogeneous. No nodule or mass. RIGHT THYROID LOBE: Smaller in size ( 2 x 0.7 x 0.8 cm ) and appears heterogeneous. No nodule or mass ISTHMUS: Normal thickness (2 mm normal ). No nodule or mass OTHER SOFT TISSUES: No soft tissue abnormality demonstrated. No significant lymphadenopathy. IMPRESSION: 1. Diffusely small, heterogeneous thyroid gland without nodules or masses, could be due to thyroiditis. /[place]
--- NOTE | 2025-05-17 11:32 | NUR ---
[facility] ICU Skin Assessment: Patient assessed by wound healing team. Patient with no wounds or skin breakdown noted. Assessment and recommendations provided to primary nurse. Education provided. Addendum: 05/17/25 at 1421 by SIMÓN LOPEZ RN RN/ Amended: Links added.
--- NOTE | 2025-05-17 11:36 | NUR ---
PT ARRIVED TO UNIT AT THIS TIME, VITALS CHARTED. VOICED TO BE AWARE OF IV REQUIREMENT , VOICED REQUESTING PICC LINE TO BE PLACED. INFORMED DR. DENG HAS BEEN CALLED PENDING CALL BACK.
[2025-05-17 12:00] VITALS: O2SAT 98
--- NOTE | 2025-05-17 12:02 | NUR ---
CALLED DR. DENG AGAIN FOR PICC LINER INSERT, PER PT TO HAVE PICC LINE PLACED, CLARIFIED PAPER WRITTERN ORDER OF 1/2NS AT 125CC /HR. PER DR. DENG CHANGE TO NS AT 125 CC/HR.
[2025-05-17 12:03] VITALS: BP 143/89; PULSE 79; RESP 16; TEMP 98.3
--- NOTE | 2025-05-17 12:08 | NUR ---
RECORDAK OPERATOR PAKO MADE AWARE OF NEW ORDER FOR PICC LINE PLACEMENT FOR PT. PT PENDING IV ABT ,FLUIDS AND ALL OTHER IV MEDICATIONS, INCLUDING CT SCAN WITH CONTRAST TO BE GIVEN DUE TO NO IV ACCESS.. CALLED DR. DENG AGAIN AT THIS TIME FOR PO PAIN MEDICATIONS , PENDING RETURN CALL .
[2025-05-17 12:15] LABS: INR <= 0.93 (0.85-1.15)
--- NOTE | 2025-05-17 12:23 | NUR ---
CT ON HOLD AT THIS TIME. PT REFUSING IV PLACEMENT. PENDING PICC LINE PLACEMENT.
[2025-05-17] MEDS ORDERED: VANCOMYCIN PROTOCOL PER PHARMACY IV SCH (12:30)
--- NOTE | 2025-05-17 12:54 | NUR ---
pt voicing pain upon urination and abdominal pain generalized, dr. ochoa called again for po pain medications while pending picc line placment, no answer. this nurse called dr. verdin informed of pt status , as per dr. verdin pt may have tramadol 50mg q6 hrs for pain .
--- NOTE | 2025-05-17 14:53 | HP ---
HISTORY AND PHYSICAL NOTE DATE OF CONSULTATION: 05/17/25 REASON FOR CONSULTATION: Abdominal pain and fever HISTORY OF PRESENT ILLNESS: Patient complains of dysuria abdominal pain and fever is being admitted as outpatient management failed improve her symptoms and she persists with leukocytosis and urinalysis suggests UTI PAST MEDICAL HISTORY: History of recurrent UTI history of anxiety and C difficile colitis and spinal stenosis ALLERGIES: Coded Allergies: No Known Allergies (Verified Allergy, Unknown, 07/07/17) HOME MEDS: Reported Medications Levothyroxine Sodium (Levothyroxine) 125 Mcg Capsule, 137 MCG PO AM, CAP 03/03/25 Metoprolol Succinate (Metoprolol Succinate) 50 Mg Tab.er.24h, 50 MG PO BID, TAB 08/09/21 Alprazolam (Alprazolam) 0.5 Mg Tablet, 0.5 MG PO TID PRN for ANXIETY, TAB 08/09/21 INPATIENT MEDS: Current Medications Medications Dose Ordered Sig/Nancy Start Time Stop Time Status Last Admin Sodium Chloride 1,000 ml @ 125 mls/hr Q8H 05/17/25 12:00 06/16/25 11:59 Acetaminophen 650 mg Q6H PRN 05/17/25 12:30 06/16/25 12:29 Piperacillin Sod/ Tazobactam Sod 3.375 gm Q8H 05/17/25 12:30 05/27/25 12:29 Hydromorphone HCl 0.5 mg Q3H3 PRN 05/17/25 12:30 05/22/25 12:29 Tamsulosin HCl 0.4 mg DAILY 05/17/25 12:30 06/16/25 12:29 05/17/25 13:10 Vancomycin HCl 1 each AD 05/17/25 12:30 05/31/25 12:29 Ondansetron HCl 4 mg Q6H PRN 05/17/25 12:30 06/16/25 12:29 Vancomycin HCl 250 ml @ 125 mls/hr Q12H 05/18/25 02:00 05/28/25 01:59 Tramadol HCl 50 mg Q6H PRN 05/17/25 13:00 05/22/25 12:59 05/17/25 13:08 VITAL SIGNS Vital Signs Date Time Temp Pulse Resp B/P (MAP) Pulse Ox O2 Delivery O2 Flow Rate FiO2 05/17/25 12:03 98.2 79 16 143/89 96 Room Air 05/17/25 12:00 98 Room Air* 0 21 05/17/25 11:09 98.1 79 20 138/79 99 Room Air* 0 21 05/17/25 08:51 99.1 94 18 150/82 96 Room Air REVIEW OF SYSTEMS Ten review of system negative other than stated above PHYSICAL EXAM HEENT atraumatic normocephalic head Neck is supple Lungs are clear to auscultation percussion Abdomen is soft suprapubic tenderness present next Neurologic moves all limbs no focal weakness Skin exam unremarkable Musculoskeletal no joint inflammation Psychiatric no anxiety stable LABORATORY RESULTS Laboratory Tests 05/17/25 10:07: White Blood Count 9.2, Red Blood Count 4.44, Hemoglobin 12.8, Hematocrit 41.1, Mean Corpuscular Volume 92.6, Mean Corpuscular Hemoglobin 28.8, Mean Corpuscular Hemoglobin Concent 31.1, Red Cell Distribution Width 14.4, Platelet Count 274, Mean Platelet Volume 10.4, Nucleated Red Blood Cells 0.0, Erythrocyte Sedimentation Rate 39, Prothrombin Time 9.7, Prothromb Time International Ratio <= 0.93, Activated Partial Thromboplast Time 22.3, Sodium Level 137, Potassium Level 3.9, Chloride Level 102, Carbon Dioxide Level 28, Blood Urea Nitrogen 18, Creatinine 0.7, Glomerular Filtration Rate Calc 97, Random Glucose 97, Lactic Acid Level 1.5, Total Calcium 9.1, Total Bilirubin 0.3, Aspartate Amino Transf (AST/SGOT) 18, Alanine Aminotransferase (ALT/SGPT) 34, Alkaline Phosphatase 48, Total Creatine Kinase 76, Troponin I High Sensitivity < 4.0, C-Reactive Protein, Quantitative 6.40, B-Type Natriuretic Peptide 32, Total Protein 7.6, Albumin 3.3, Thyroid Stimulating Hormone (TSH) 9.65 PROBLEM LIST: (1) UTI (urinary tract infection) ICD Codes: N39.0 - Urinary tract infection, site not specified PLAN IV antibiotics failed outpatient management consulted Infectious Disease resume home medication ONEIDA DENG MD May 17, 2025 14:53
--- NOTE | 2025-05-17 15:17 | NUR ---
heriberto conway, [place]-, ok to use picc line . line is in placed.
--- NOTE | 2025-05-17 15:21 | NUR ---
consent for ct with contrast iv obtained from patient. patient is AAOX3, aware of risk involved
--- NOTE | 2025-05-17 15:40 | NUR ---
pt aaox3. vitals as charted, transported to ct scan at this time.
[2025-05-17] MEDS ORDERED: IOHEXOL 350 MG/ML 100ML INFUS..BTL IV ONE (15:57)
--- NOTE | 2025-05-17 16:28 | HMCIMG ---
EXAM: CR Chest, 2 View. CLINICAL HISTORY: s/p picc line insertion COMPARISON: X-ray chest 12/30/2019 FINDINGS: LUNGS: There is no mass, infiltrate, or acute pulmonary abnormality. PLEURAL SPACES: No evidence of pleural effusion or pneumothorax. MEDIASTINUM: The cardiomediastinal silhouette is within normal limits. Interval placement of right PICC line catheter whose tip projects within the distribution of the SVC and right atrium. Interval removal of the left PICC line catheter compared with the prior exam. BONES: No aggressive appearing osseous lesion seen. IMPRESSION: 1. No acute cardiopulmonary findings. 2. Right PICC line tip projects within the SVC and right atrium. 3. Interval removal of left PICC line. /[place]
[2025-05-17] MEDS: VANCOMYCIN 1.75 GM/250 ML BAG 250 ML IV ONE (16:41)
[2025-05-17] MEDS: 0.9%NACL 1000ML 1,000 ML IV SCH (16:41)
[2025-05-17] MEDS: ZOSYN 3.375GM +NS 50ML IV SCH (16:41)
[2025-05-17 16:55] VITALS: BP 133/86; PULSE 86; RESP 25; TEMP 98
[2025-05-17 18:20] LABS: APPEARANCE,URINE CLEAR (CLEAR); GLUCOSE, URINE (UA) NEGATIVE (NEGATIVE); LEUKOCYTE ESTERASE ,URINE NEGATIVE Leu/uL (NEGATIVE); NITRATE,URINE NEGATIVE (NEGATIVE); OCCULT BLOOD,URINE +- (TRACE) (NEGATIVE)
[2025-05-17 18:21] LABS: ADD UA MICROSCOPIC YES
[2025-05-17 18:23] LABS: SQUAMOUS EPITHELIAL CELL,UR RARE /HPF (0-2)
[2025-05-17 20:00] VITALS: BP 123/81; PULSE 78; RESP 11; TEMP 98.2
[2025-05-17 21:36] VITALS: O2SAT 97
[2025-05-17 23:49] VITALS: BP 141/86; PULSE 84; RESP 18; TEMP 98
[2025-05-18 04:00] VITALS: BP 150/82; PULSE 100; RESP 20; TEMP 98.6
[2025-05-18 05:56] LABS: NUCLEATED RED BLOOD CELLS 0.0 % (0.0-0.19); PLATELET COUNT (AUTO) 205.0 K/uL (130-400); RED BLOOD CELL COUNT(AUTO) 4.1 MIL/uL (4.00-5.50); RED CELL DISTRIBUTION WIDTH 14.3 % (11.0-15.5); WHITE BLOOD COUNT (AUTO) 8.8 K/uL (4.8-10.8)
[2025-05-18 06:13] LABS: CREATININE 0.8 mg/dL (0.5-1.0); GLOMERULAR FILTR. RATE CALC 83.0 mL/min (>90); GLUCOSE,RANDOM 108.0 mg/dL (70-105); SODIUM SERUM 133.0 mmol/L (136-145); UREA NITROGEN, BLOOD 14.0 mg/dL (7-18)
[2025-05-18] MEDS: VANCOMYCIN 1G/250ML KIT 250 ML IV SCH (06:14)
[2025-05-18 08:00] VITALS: BP 141/81; PULSE 89; RESP 19; TEMP 98.1
--- NOTE | 2025-05-18 10:09 | NUR ---
DCP: HOME Pt reports that she lives independently at her home alone. To date, pt requires no assistance with completing her ADLS, home management, meal prep or transportation. Pt states she remains very active, uses no DME or HH services.PCP is Les Nieves and uses [facility] for her rx needs. Pt denies need for SNF, sister Kimberlyn Hua [phone] can assist pt as needed DCP is home Addendum: 05/18/25 at 1013 by LIZBETH TURCIOS Amended: Links added.
--- NOTE | 2025-05-18 10:55 | CONS ---
INFECTIOUS DISEASE CONSULTATION REQUESTING PHYSICIAN: Lidya Thomson MD REASON FOR CONSULTATION: UTI. HISTORY OF PRESENT ILLNESS: A 64-year-old female with history of obesity, hypertension, and UTI presented to the hospital with abdominal pain and urinary symptoms. The patient claims she was given ceftriaxone for 3 days in the office last week. Due to persistent symptoms, she was also treated with levofloxacin. The patient is now admitted due to continuous dysuria and lower abdominal pain. No fever or chills. No nausea, vomiting, or diarrhea. Chest x-ray has been done which came back unremarkable. The patient has been started on vancomycin and Zosyn. PAST MEDICAL HISTORY: * C. difficile colitis. * UTI. * Hypertension. * Obesity. * Dyslipidemia. * Atrial fibrillation. * Abdominal wall cellulitis. PAST SURGICAL HISTORY: * Hysterectomy. * section. * Cholecystectomy. * EGD. * Sacroiliac pain injection. ALLERGIES: No known drug allergies. CURRENT MEDICATIONS: * Vancomycin. * Zosyn. * Tylenol. * Zofran. SOCIAL HISTORY: There is no alcohol, tobacco or illicit drug use. FAMILY HISTORY: Noncontributory. REVIEW OF SYSTEMS: Greater than 10 systems were reviewed and negative except as documented above. PHYSICAL EXAMINATION: GENERAL: . VITAL SIGNS: Temperature 98.2, pulse 79, respirations 16, BP 143/89. EYES: No icterus. Pupils equal and reactive. HENT: No oral thrush seen. Moist oral mucosa. NECK: Supple. No JVD or thyromegaly. LUNGS: Good air entry. No rales, no rhonchi. CARDIOVASCULAR: S1 and S2. Regular. No murmur heard. ABDOMEN: Obese, soft, nontender. Bowel sound is present. CENTRAL NERVOUS SYSTEM: Awake, alert, oriented x 3. No focal deficits. SKIN: No rashes, no itchiness. LYMPHATIC: No peripheral lymphadenopathy. BACK: No deformity or pressure ulcer. MUSCULOSKELETAL: No joint swelling, erythema or tenderness. LABORATORY DATA: Sodium 137, potassium 3.9, BUN 18, creatinine 0.7. WBC 9.7, hemoglobin 12.8, platelets 140. Chest x-ray unremarkable. ASSESSMENT: A 64-year-old female who presented with abdominal pain and urinary symptoms. * Urinary tract infection. * Abdominal pain. * Hypertension. * History of atrial fibrillation. * Obesity. PLAN: * Continue Zosyn. * Follow up culture. * Continue pain management. * Continue antiemetic. * Continue antihypertensive. * Continue nutritional support. * Monitor electrolytes and correct as needed. Thank you for allowing me to participate in the care of this patient. TID: [id number] RECEIPT: [id number]
--- NOTE | 2025-05-18 11:33 | HMCIMG ---
Exam: Urinary bladder ultrasound performed transabdominal Indication: Sepsis. Technique: Real-time ultrasound of the urinary bladder was performed with grayscale and color Doppler assessment. [employer] sonographic images were saved by the rover tender for review. Comparison: No previous ultrasound of the urinary bladder is available for comparison at this institution. Findings: . The urinary bladder has a normal appearance. No urinary bladder wall thickening, calculus, or mass is identified. The urinary bladder wall thickening is 0.3 cm. The estimated prevoid urine volume is 138 mL. The post void urinary bladder residual is 0 mL. Impression: Urinary bladder ultrasound is within normal limits, as above.
[2025-05-18 12:17] VITALS: BP 133/77; PULSE 89; RESP 19; TEMP 98.2
--- NOTE | 2025-05-18 13:09 | HMCIMG ---
EXAM: CT Chest, Abdomen, and Pelvis with IV contrast CLINICAL HISTORY: Shortness of breath. Sepsis. UTI. TECHNIQUE: Thin collimated axial CT images of the chest, abdomen, and pelvis were obtained, with sagittal and coronal reformatted images also submitted. A CT scan is done according to ALARA (As Low As Reasonably Achievable). CONTRAST: 100 cc Omnipaque 350. COMPARISON: CT scan of the abdomen and pelvis. 03/08/2025. FINDINGS: The lungs are clear. No pleural effusions. No pericardial effusion. The heart size is within normal limits. Coronary vessels and intrathoracic aorta are grossly normal. No axillary, supraclavicular, or mediastinal lymphadenopathy. There is no focal abnormality appreciated within the liver, pancreas, spleen, adrenals, or kidneys. Status post cholecystectomy with mild pneumobilia. Fatty liver. There is no obvious bowel wall thickening. Bowel loops are normal in caliber without evidence of obstruction or ileus. Status post appendicectomy. There is no abnormality within the urinary bladder. Status post hysterectomy. Abdominal and pelvic vessels are patent. No lymphadenopathy. No free fluid. No pneumoperitoneum. There is no acute osseous abnormality. Fixation hardware in the lower lumbar spine. IMPRESSIONS: 1. No acute process in the chest, abdomen, or pelvis. 2. Status post cholecystectomy with mild pneumobilia. 3. Fatty liver. 4. Status post hysterectomy and appendectomy.. /[place]
--- NOTE | 2025-05-18 13:16 | PN ---
INFECTIOUS DISEASE PROGRESS NOTE Date of Service: May 18, 2025 SUBJECTIVE: This is a 64-year-old female patient with a history of urinary tract infection who was admitted to the hospital with chief complaint of abdominal pain and fever. On presentation to the hospital patient had a temperature of 99.1. Patient has been started on Zosyn and vancomycin. Patient continues expressing pain mostly to the left side of the abdomen. Patient's stated she is feeling nauseated but no vomiting. Encouraged to ask for antiemetic medication when necessary. We will continue to follow patient's care. PHYSICAL EXAM EYES: Anicteric. Pupils equal and reactive. HENT: No oral thrush seen, moist Oral mucosa NECK: Supple, no JVD or thyromegaly. LUNGS: Good air entry. No rales, no rhonchi. CARDIOVASCULAR: S1, S2 regular. No murmur heard. ABDOMEN: Soft, abdominal pain mostly to the left side. CENTRAL NERVOUS SYSTEM: Awake, alert, oriented x 3. SKIN: No rashes, no swelling. LYMPHATICS: No peripheral lymphadenopathy MUSCULOSKELETAL: No joint swelling, erythema or tenderness. EXTREMITIES: No cyanosis or clubbing. BACK: No deformity, no pressure ulcer. GENITOURINARY: No dysuria or hematuria. Vital Sign (Last 12 Hours) 05/18/25 05/18/25 05/18/25 04:00 08:00 12:17 Temp 98.6 98.1 98.2 Pulse 100 89 89 Resp 20 19 19 B/P (MAP) 150/82 141/81 133/77 Pulse Ox 96 94 93 O2 Delivery Room Air Room Air Room Air Intake & Output (last 24hrs) 05/17/25 05/17/25 05/18/25 15:00 23:00 07:00 Intake Total 362.5 ml Output Total 200 ml Balance 162.5 ml LABS: Laboratory: Test 05/18/25 05:40 05/17/25 18:05 05/17/25 10:07 Range/Units White Blood Count 8.8 4.8-10.8 K/uL Red Blood Count 4.10 4.00-5.50 MIL/uL Hemoglobin 12.0 12.0-16.0 g/dL Hematocrit 36.4 36-48 % Mean Corpuscular Volume 88.8 79-99 fL Mean Corpuscular Hemoglobin 29.3 27.0-33.0 pg Mean Corpuscular Hemoglobin Concent 33.0 32.0-36.0 g/dL Red Cell Distribution Width 14.3 11.0-15.5 % Platelet Count 205 # 130-400 K/uL Mean Platelet Volume 10.3 7.5-10.5 fL Nucleated Red Blood Cells 0.0 0.0-0.19 % Sodium Level 133 L 136-145 mmol/L Potassium Level 4.0 3.5-5.1 mmol/L Chloride Level 101 101-111 mmol/L Carbon Dioxide Level 25 21-32 mmol/L Blood Urea Nitrogen 14 7-18 mg/dL Creatinine 0.8 0.5-1.0 mg/dL Glomerular Filtration Rate Calc 83 >90 mL/min Random Glucose 108 H 70-105 mg/dL Total Calcium 8.4 L 8.5-10.1 mg/dL B-Type Natriuretic Peptide 31 0-100 pg/mL Urine Color LIGHT-YELLOW YELLOW Urine Appearance CLEAR CLEAR Urine pH 6.5 5.0-8.0 Urine Specific [place] OVER 1.001-1.031 Urine Protein NEGATIVE NEGATIVE mg/dL Urine Glucose (UA) NEGATIVE NEGATIVE mg/dL Urine Ketones NEGATIVE NEGATIVE mg/dL Urine Occult Blood +- (TRACE) H NEGATIVE Urine Nitrate NEGATIVE NEGATIVE Urine Bilirubin NEGATIVE NEGATIVE mg/dL Urine Urobilinogen 0.2 0.2-1.0 mg/dL Urine Leukocyte Esterase NEGATIVE NEGATIVE Lori/uL Urine RBC 2-5 H 0-1 /HPF Urine WBC 0-1 0-1 /HPF Urine Squamous Epithelial Cells RARE 0-2 /HPF Urine Bacteria None None Seen /HPF Erythrocyte Sedimentation Rate 39 H 0-30 MM/HR Prothrombin Time 9.7 9.6-11.6 SEC Prothromb Time International Ratio <= 0.93 0.85-1.15 Activated Partial Thromboplast Time 22.3 L 26.3-35.5 SEC Lactic Acid Level 1.5 0.8-2.5 mmol/L Total Bilirubin 0.3 0.2-1.0 mg/dL Aspartate Amino Transf (AST/SGOT) 18 10-37 U/L Alanine Aminotransferase (ALT/SGPT) 34 12-78 U/L Alkaline Phosphatase 48 L 50-136 U/L Total Creatine Kinase 76 # 21-232 U/L Troponin I High Sensitivity < 4.0 L 4-50 ng/L C-Reactive Protein, Quantitative 6.40 H 0.5-3.0 mg/L Total Protein 7.6 6.0-8.3 g/dL Albumin 3.3 L 3.5-5.0 g/dL Thyroid Stimulating Hormone (TSH) 9.65 #H 0.36-3.74 uIU/mL ASSESSMENT: Urinary tract infection. Abdominal pain. Hypertension. History of anxiety. History of spinal stenosis. PLAN: Continue vancomycin. Continue Zosyn. We will follow up on the CT of the abdomen/pelvis and chest results. Continue pain management. Continue antiemetics. This case was reviewed and discussed with my supervising physician Dr. Godinez and the above assessment and plan was formulated and agreed upon. ATTESTATION BY PHYSICIAN I have seen and examined the patient. I reviewed the documentation, medical decision making, and treatment plan as noted by the mid-level provider above. I agree with the findings and plan of care. TYSON GODINEZ MD, [facility] May 18, 2025 13:16
[2025-05-18 16:00] VITALS: BP 141/89; PULSE 89; RESP 16; TEMP 99.1
[2025-05-18 20:00] VITALS: BP 130/73; PULSE 92; RESP 16; TEMP 98.3
--- NOTE | 2025-05-18 22:02 | PN ---
PROGRESS NOTE PROGRESS NOTE DATE OF PROGRESS NOTE: 05/18/25 SUBJECTIVE: no fevers VITAL SIGNS Vital Signs Date Time Temp Pulse Resp B/P (MAP) Pulse Ox O2 Delivery O2 Flow Rate FiO2 05/18/25 16:00 99.1 89 16 141/89 94 Room Air 05/17/25 21:36 2 28 PHYSICAL EXAM: HEENT atraumatic normocephalic head Neck is supple Lungs are clear to auscultation percussion Abdomen is soft suprapubic tenderness present next Neurologic moves all limbs no focal weakness Skin exam unremarkable Musculoskeletal no joint inflammation Psychiatric no anxiety stable LABORATORY: Laboratory Result(s) Test 05/18/25 05:40 White Blood Count 8.8 K/uL (4.8-10.8) Red Blood Count 4.10 MIL/uL (4.00-5.50) Hemoglobin 12.0 g/dL (12.0-16.0) Hematocrit 36.4 % (36-48) Mean Corpuscular Volume 88.8 fL (79-99) Mean Corpuscular Hemoglobin 29.3 pg (27.0-33.0) Mean Corpuscular Hemoglobin Concent 33.0 g/dL (32.0-36.0) Red Cell Distribution Width 14.3 % (11.0-15.5) Platelet Count 205 K/uL (130-400) Mean Platelet Volume 10.3 fL (7.5-10.5) Nucleated Red Blood Cells 0.0 % (0.0-0.19) Sodium Level 133 mmol/L (136-145) Potassium Level 4.0 mmol/L (3.5-5.1) Chloride Level 101 mmol/L (101-111) Carbon Dioxide Level 25 mmol/L (21-32) Blood Urea Nitrogen 14 mg/dL (7-18) Creatinine 0.8 mg/dL (0.5-1.0) Glomerular Filtration Rate Calc 83 mL/min (>90) Random Glucose 108 mg/dL (70-105) Total Calcium 8.4 mg/dL (8.5-10.1) B-Type Natriuretic Peptide 31 pg/mL (0-100) INPATIENT MEDS: Current Medications Medications Dose Ordered Sig/Nancy Start Time Stop Time Status Last Admin Sodium Chloride 1,000 ml @ 125 mls/hr Q8H 05/17/25 12:00 06/16/25 11:59 05/17/25 16:41 Acetaminophen 650 mg Q6H PRN 05/17/25 12:30 06/16/25 12:29 05/18/25 03:38 Piperacillin Sod/ Tazobactam Sod 3.375 gm Q8H 05/17/25 12:30 05/27/25 12:29 05/18/25 12:48 Hydromorphone HCl 0.5 mg Q3H3 PRN 05/17/25 12:30 05/22/25 12:29 05/18/25 20:32 Tamsulosin HCl 0.4 mg DAILY 05/17/25 12:30 06/16/25 12:29 05/18/25 10:14 Vancomycin HCl 1 each AD 05/17/25 12:30 05/31/25 12:29 Ondansetron HCl 4 mg Q6H PRN 05/17/25 12:30 06/16/25 12:29 05/18/25 20:22 Vancomycin HCl 250 ml @ 125 mls/hr Q12H 05/18/25 06:00 05/28/25 05:59 05/18/25 18:08 Ibuprofen 600 mg Q4H PRN 05/18/25 10:30 06/17/25 10:29 PROBLEM LIST: (1) UTI (urinary tract infection) ICD Code: N39.0 - Urinary tract infection, site not specified PLAN: IV antibiotics failed outpatient management consulted Infectious Disease resume home medication ONEIDA DENG MD May 18, 2025 22:02
[2025-05-19] VITALS (8 sets, daily range): BP systolic 120–140; BP diastolic 76–89; PULSE 75–99; RESP 16–20; TEMP 98–98.6; O2SAT 97
[2025-05-19] MEDS: LEVOTHYROXINE SODIUM 137 MCG PO SCH (09:00)
--- NOTE | 2025-05-19 17:13 | PN ---
INFECTIOUS DISEASE PROGRESS NOTE Date of Service: May 19, 2025 SUBJECTIVE: This 64 year old female patient is being seen today at bedside. Has no fever or chills. NO nausea or vomiting. Patient denies chest pain or shortness of breath. Patient remains on antibiotics tolerating well. No growth noted to blood cultures after 48 hours. No growth noted to urine cultures. No over night event reported by nurse at this visit. We continue to follow. PHYSICAL EXAM EYES: Anicteric. Pupils equal and reactive. HENT: No oral thrush seen, moist Oral mucosa NECK: Supple, no JVD or thyromegaly. LUNGS: Good air entry. No rales, no rhonchi. CARDIOVASCULAR: S1, S2 regular. No murmur heard. ABDOMEN: Soft, abdominal pain mostly to the left side. CENTRAL NERVOUS SYSTEM: Awake, alert, oriented x 3. SKIN: No rashes, no swelling. LYMPHATICS: No peripheral lymphadenopathy MUSCULOSKELETAL: No joint swelling, erythema or tenderness. EXTREMITIES: No cyanosis or clubbing. BACK: No deformity, no pressure ulcer. GENITOURINARY: No dysuria or hematuria. Vital Sign (Last 12 Hours) 05/19/25 05/19/25 05/19/25 05/19/25 07:59 08:00 11:41 15:57 Temp 98.1 98.1 98.1 Pulse 98 79 75 Resp 16 16 16 B/P (MAP) 134/85 131/89 132/76 Pulse Ox 97 97 94 93 O2 Delivery Room Air Room Air* Room Air Room Air O2 Flow Rate 0 FiO2 21 Intake & Output (last 24hrs) 05/18/25 05/18/25 05/19/25 15:00 23:00 07:00 Intake Total 950 ml Balance 950 ml LABS: Laboratory: Test 05/18/25 05:40 05/17/25 18:05 Range/Units White Blood Count 8.8 4.8-10.8 K/uL Red Blood Count 4.10 4.00-5.50 MIL/uL Hemoglobin 12.0 12.0-16.0 g/dL Hematocrit 36.4 36-48 % Mean Corpuscular Volume 88.8 79-99 fL Mean Corpuscular Hemoglobin 29.3 27.0-33.0 pg Mean Corpuscular Hemoglobin Concent 33.0 32.0-36.0 g/dL Red Cell Distribution Width 14.3 11.0-15.5 % Platelet Count 205 # 130-400 K/uL Mean Platelet Volume 10.3 7.5-10.5 fL Nucleated Red Blood Cells 0.0 0.0-0.19 % Sodium Level 133 L 136-145 mmol/L Potassium Level 4.0 3.5-5.1 mmol/L Chloride Level 101 101-111 mmol/L Carbon Dioxide Level 25 21-32 mmol/L Blood Urea Nitrogen 14 7-18 mg/dL Creatinine 0.8 0.5-1.0 mg/dL Glomerular Filtration Rate Calc 83 >90 mL/min Random Glucose 108 H 70-105 mg/dL Total Calcium 8.4 L 8.5-10.1 mg/dL B-Type Natriuretic Peptide 31 0-100 pg/mL Urine Color LIGHT-YELLOW YELLOW Urine Appearance CLEAR CLEAR Urine pH 6.5 5.0-8.0 Urine Specific [place] OVER 1.001-1.031 Urine Protein NEGATIVE NEGATIVE mg/dL Urine Glucose (UA) NEGATIVE NEGATIVE mg/dL Urine Ketones NEGATIVE NEGATIVE mg/dL Urine Occult Blood +- (TRACE) H NEGATIVE Urine Nitrate NEGATIVE NEGATIVE Urine Bilirubin NEGATIVE NEGATIVE mg/dL Urine Urobilinogen 0.2 0.2-1.0 mg/dL Urine Leukocyte Esterase NEGATIVE NEGATIVE Lori/uL Urine RBC 2-5 H 0-1 /HPF Urine WBC 0-1 0-1 /HPF Urine Squamous Epithelial Cells RARE 0-2 /HPF Urine Bacteria None None Seen /HPF ASSESSMENT: Urinary tract infection. Abdominal pain. Hypertension. History of anxiety. History of spinal stenosis. PLAN: Continue vancomycin. Continue Zosyn. okay for patient to be d/c once ready, no antibiotics Continue pain management. Continue antiemetics. This case was reviewed and discussed with my supervising physician Dr. Aguillon and the above assessment and plan was formulated and agreed upon. CRIS MARTIN [facility] [place] May 19, 2025 17:13
--- NOTE | 2025-05-19 21:02 | PN ---
PROGRESS NOTE PROGRESS NOTE DATE OF PROGRESS NOTE: 05/19/25 SUBJECTIVE: feels better VITAL SIGNS Vital Signs Date Time Temp Pulse Resp B/P (MAP) Pulse Ox O2 Delivery O2 Flow Rate FiO2 05/19/25 20:00 98.1 77 20 126/78 92 Room Air 05/19/25 08:00 0 21 PHYSICAL EXAM: HEENT atraumatic normocephalic head Neck is supple Lungs are clear to auscultation percussion Abdomen is soft suprapubic tenderness present next Neurologic moves all limbs no focal weakness Skin exam unremarkable Musculoskeletal no joint inflammation Psychiatric no anxiety stable LABORATORY: Laboratory Result(s) Test 05/19/25 16:51 Vancomycin Level Trough 5.9 UG/ML (10.0-20.0) INPATIENT MEDS: Current Medications Medications Dose Ordered Sig/Nancy Start Time Stop Time Status Last Admin Sodium Chloride 1,000 ml @ 125 mls/hr Q8H 05/17/25 12:00 06/16/25 11:59 05/19/25 11:49 Acetaminophen 650 mg Q6H PRN 05/17/25 12:30 06/16/25 12:29 05/19/25 00:57 Piperacillin Sod/ Tazobactam Sod 3.375 gm Q8H 05/17/25 12:30 05/27/25 12:29 05/18/25 12:48 Hydromorphone HCl 0.5 mg Q3H3 PRN 05/17/25 12:30 05/22/25 12:29 05/19/25 20:19 Tamsulosin HCl 0.4 mg DAILY 05/17/25 12:30 06/16/25 12:29 05/19/25 08:51 Vancomycin HCl 1 each AD 05/17/25 12:30 05/31/25 12:29 Ondansetron HCl 4 mg Q6H PRN 05/17/25 12:30 06/16/25 12:29 05/19/25 20:13 Vancomycin HCl 250 ml @ 125 mls/hr Q12H 05/18/25 06:00 05/28/25 05:59 05/18/25 18:08 Ibuprofen 600 mg Q4H PRN 05/18/25 10:30 06/17/25 10:29 05/19/25 11:50 Metoprolol Succinate 50 mg BID 05/19/25 09:00 06/18/25 08:59 05/19/25 20:13 Home Med Levothyroxine Sodium (Levothyroxi... SYN 05/19/25 09:00 06/18/25 08:59 PROBLEM LIST: (1) UTI (urinary tract infection) ICD Code: N39.0 - Urinary tract infection, site not specified PLAN: IV antibiotics failed outpatient management consulted Infectious Disease resume home medication ONEIDA DENG MD May 19, 2025 21:02
[2025-05-20 03:28] VITALS: BP 117/70; PULSE 71; RESP 20; TEMP 97.9
--- NOTE | 2025-05-20 06:46 | NUR ---
PICC LINE REMOVED PATIENT SEMI FOWLERS. REMOVED USING STERILE TECHNIQUE. 38CM REMOVED. TIP INTACT. PRESSURE APPLIED TO SITE. PATIENT TOLERATED PROCEDURE. NO SOB OR BLEEDING NOTED. INSTRUCTED TO NOTIFY NURSE IF BLEEDING IS NOTED TO PICC SITE. PATIENT VERBALIZES UNDERSTANDING.
--- NOTE | 2025-05-20 08:02 | DS ---
Discharge Summary DIAGNOSE(S): [Fever and failed outpatient management for UTI] HOSPITAL COURSE SUMMARY: [Patient continue with antibiotic consulted Infectious Disease given recent spinal procedure workup was negative she was asymptomatic with normal white cell count and sed rate she is being discharged without antibiotics] [employer] SALES(S): [Infectious disease] PROCEDURE(S)/TREATMENT(S): [] PROBLEM(S): [] FOLLOW-UP TEST(S): [Follow up noticed] DISCHARGE INSTRUCTIONS: [Follow up with PCP 1-2 days] Home Meds Reported Medications Levothyroxine Sodium (Levothyroxine) 125 Mcg Capsule, 137 MCG PO AM, CAP 03/03/25 Metoprolol Succinate (Metoprolol Succinate) 50 Mg Tab.er.24h, 50 MG PO BID, TAB 08/09/21 Alprazolam (Alprazolam) 0.5 Mg Tablet, 0.5 MG PO TID PRN for ANXIETY, TAB 08/09/21 ONEIDA DENG MD May 20, 2025 08:02
== END 2025-05-20 08:10 | disposition home or self-care (01) ==
LOC: EDH 08:50 → DIRECT 08:51 → 2BH 11:14 → 4DH 22:00
PROVIDERS: ADMIT Internal Medicine; ATTEND Internal Medicine
DX: N39.0 Urinary tract infection, site not specified (principal); I10 Essential (primary) hypertension; E78.5 Hyperlipidemia, unspecified; L03.311 Cellulitis of abdominal wall; F41.9 Anxiety disorder, unspecified; M48.00 Spinal stenosis, site unspecified; R11.0 Nausea; E66.9 Obesity, unspecified; Z90.710 Acquired absence of both cervix and uterus; Z68.27 Body mass index [BMI] 27.0-27.9, adult; Z79.899 Other long term (current) drug therapy
CPT/HCPCS: 96376 ×4; 96365; 96366 ×2; 96375; 96368; 84443; 82550; 84484; 80053; 83880 ×2; 85027 ×2; 85610; 85730; 85651; 87040 ×2; 87086; 83605; 86140; 81001; 36415 ×3; 71045; 71046; 71260; 74177; 76536; 76857; 93005; 80048; 96361; 80202; G0378 ×71; G0379; J2405 ×9; J2543 ×4; J1171 ×10; Q9967; J3370; J3373 ×2